=== PATIENT | male | born 1950 | race Caucasian/White ===

== ENCOUNTER 2023-04-25 09:08 | Outpatient (CLI) | payer MEDICARE, BC, SELFPAY ==
--- NOTE | 2023-04-25 10:15 | MR_ITS ---
[address] [address] Phone:?[phone] Fax:?[phone] Referring Physician Information: Dago Zaman M.D. [address] [place] [id number] Phone:?[phone] Fax:?[phone] Patient:?Raymond Carvalho D.O.B:?1950 Sex:?Male Phone:?[phone] [facility] MRN:?[id number] Exam Date:?04/25/2023 EXAM: MRI EXAMINATION OF THE LEFT SHOULDER CLINICAL INFORMATION: Left shoulder pain. No history of surgery to this area. Evaluate possible rotator cuff tear. TECHNICAL INFORMATION: Coronal STIR as well as axial, sagittal and coronal PD and T2-weighted images were acquired. No prior studies for comparison. INTERPRETATION: Bones: There is no Hill-Sachs impaction deformity. Minimal osseous cystic changes alongside the AC joint. No other bone marrow edema pattern. Rotator Cuff: Series 8 images 7 and 8 as well as series 4 images 11 through 13 demonstrate a 1.8 cm AP by 0.8 cm mediolateral segment of undersurface tearing involving the supraspinatus tendon insertion. Towards the far anterior tendon insertion, this includes a 4 mm full-thickness component of tear. There is no evidence for tendon retraction or muscle belly atrophy. Mild infraspinatus tendinopathy. The teres minor tendon is intact. Mild subscapularis tendinopathy. No appreciable rotator cuff muscle belly atrophy. Coracoacromial arch: There is mild undersurface spurring identified involving the acromion. The bony acromiohumeral interval is measuring 7 mm. There is no thickening identified of the coracoacromial ligament. Acromioclavicular joint: There is a moderate to marked appearance of AC joint DJD. No deformity of the underlying supraspinatus tendon. Mild fluid and edema signal within the subacromial/subdeltoid bursa areas. Biceps tendon: The long head biceps tendon is intact and nondisplaced from the bicipital groove. No evidence for a tendon tear or any appreciable changes of tendinopathy. There is a mild to moderate appearance of tenosynovitis. Glenohumeral joint and labrum: No significant glenohumeral joint effusion. No discrete loose body within the joint. Osteochondral surfaces appear relatively preserved. There is a focal and shallow tear identified involving the superior aspect of the labrum. Series 3 image 48 as well as series 4 image 12 demonstrates a 7 mm anterior paralabral cyst as likely represents adjacent occult labral tear. CONCLUSION: 1. There is a moderate-sized segment of undersurface tear involving the supraspinatus tendon insertion. Towards the far anterior tendon insertion, there is a small full-thickness component of tear. No tendon retraction or muscle atrophy. 2. 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 Mild subacromial/subdeltoid bursitis. 3. Unremarkable and intact long head biceps tendon. 4. No appreciable glenohumeral chondromalacia. 5. There is a focal and shallow tear involving the superior aspect of the labrum. There is a 7 mm anterior paralabral cyst as would be in keeping with adjacent occult labral tear. KES Electronically signed on 04/25/2023 3:09:00 PM by Jose Raul Barros M.D.
== END 2023-04-25 09:09 | disposition home or self-care (01) ==
LOC: MRI 09:09
PROVIDERS: PCP Family Medicine; Visit Provider Orthopaedic Surgery
DX: M25.512 Pain in left shoulder (principal); S46.812A Strain of other muscles, fascia and tendons at shoulder and upper arm level, left arm, initial encounter; M19.012 Primary osteoarthritis, left shoulder
CPT/HCPCS: 73221

== ENCOUNTER 2023-06-09 08:54 | Day surgery (SDC) | payer MEDICARE, BC, SELFPAY ==
[2023-06-09] VITALS (17 sets, daily range): BP systolic 108–149; BP diastolic 49–74; PULSE 57–76; RESP 10–18; TEMP 36.1–36.4; O2SAT 92–98; BMI 38.8
[2023-06-09] MEDS: ACETAMINOPHEN 500 MG TABLET 1000 MG PO (09:42)
[2023-06-09] MEDS: CELECOXIB 200 MG CAPSULE PO (09:42)
[2023-06-09] MEDS: OXYCODONE (CR) 10 MG TAB.ER.12H PO (09:42)
[2023-06-09] MEDS: SODIUM CHLORIDE 0.9 % (FLUSH) 10 ML SYRINGE IVF (09:43)
[2023-06-09] MEDS: LACTATED RINGERS 1000 ML 1,000 ML 100 ML IV (09:43)
[2023-06-09] MEDS: MIDAZOLAM HCL 1 MG/ML inj IVP (10:54)
[2023-06-09] MEDS: fentaNYL 100 MCG/2 ML inj IVP (10:54)
--- NOTE | 2023-06-09 10:57 | SUR.PREOP ---
TIME?OUT:?1054 PT/RN/MDA?VERIFICATION?OF?SURGICAL?SITE,?PROCEDURE,?AND?CONSENT OBTAINED?PRIOR?TO?INVASIVE?PROCEDURE.
[2023-06-09] MEDS: CEFAZOLIN 2 GM INJ IVP (11:36)
[2023-06-09] MEDS: EPINEPHrine 1 MG in SODIUM CHLORIDE IRRIG SOLUTION 3,000 ML 9003 MG IRRIGATION ×2 (11:52→12:20)
--- NOTE | 2023-06-09 12:58 | PM.ORPRC ---
Procedure Note Date of procedure: 06/09/23 Procedure: PREOPERATIVE DIAGNOSIS: Left shoulder rotator cuff tear, AC joint arthrosis POSTOPERATIVE DIAGNOSIS: Left shoulder rotator cuff tear, AC joint arthrosis NAME OF OPERATION: Left shoulder arthroscopic subacromial decompression, distal clavicle excision, mini open rotator cuff repair SURGEON: Dago Zaman MD ROVING OR YARN COLOR CHECKER: Zoë Carrizales PA-C ANESTHESIA: Supraclavicular block plus general endotracheal ESTIMATED BLOOD LOSS: 5 mL COMPLICATIONS: None SPECIMENS: None DRAINS: None PREOPERATIVE ANTIBIOTICS: Ancef 3 grams INDICATIONS: The patient is a 72-year-old with a history of left shoulder pain secondary to the above diagnoses. Despite appropriate non operative management, they continue to have symptoms. Operative intervention was recommended. The risks, benefits and expected outcomes were discussed in detail. These included but were not limited to: Infection, bleeding, injury to blood vessel or nerve, venous thromboembolism. All questions were answered to their satisfaction. PROCEDURE: A supraclavicular block was placed by Anesthesia. General anesthesia was administered. The patient was placed in the high beach chair position. The left shoulder was prepped and draped in the usual sterile fashion. The glenohumeral joint was infiltrated with 20 mL of normal saline with epinephrine. The posterior portal was established, the arthroscope was introduced. The anterior portal was established, Diagnostic arthroscopy was performed with findings as follows: The biceps and biceps anchor are intact. The anterior, posterior and superior labrum are normal. Articular surfaces on the humeral head and glenoid are normal. There are no loose bodies. There is undersurface degenerative tearing of the anterior aspect of the supraspinatus, without obvious full-thickness tearing. The arthroscope was placed in the subacromial space, the lateral portal was established. The Arthrex Elton was used to dissect the acromion free. The CA ligament was recessed off the anterior acromion, the AC joint was exposed. The acromioplasty was performed with the bur in the posterior portal. The bur was then placed in the lateral portal and the lateral and anterior aspect of the acromion were resected. The undersurface of the distal clavicle was resected through the lateral portal. Finally, the bur was placed in the anterior portal and the remainder of the distal clavicle was resected for a total of 10 mm. An accessory anterolateral portal was placed. The subacromial/subdeltoid bursa was aggressively debrided. There is a small full-thickness tear of the supraspinatus, with significant tendinopathy into infraspinatus. Arthroscopic instruments were removed. The accessory anterolateral portal was extended proximally and distally, subcutaneous dissection was taken with electrocautery to the deltoid. The deltoid was divided in line with its fibers. The static retractor was placed. The subacromial/subdeltoid bursa was debrided with the Anne scissors. The tear was extended anteriorly to the biceps and posteriorly into the infraspinatus, just past the poor quality tendon. The greater tuberosity was debrided to punctate bleeding bone using the Lempert rongeur. Two Arthrex BioComposite SwiveLock anchors were placed just off the articular surface. Both limbs of the FiberWire and fiber tape were passed using the scorpion. A fiber link was placed in the leading edge of the rotator cuff x2. We tied the 2 central FiberWire sutures over the rotator cuff. We then proceeded with a lateral row of SwiveLock anchors x 2 crossing the FiberTape and incorporating the FiberWire and fiber link into each lateral row anchor. This provides an anatomic, watertight repair of the rotator cuff. There is no tension on the repair with the shoulder at 0? abduction. The wound was irrigated with normal saline off the pump. The deltoid was repaired with an 0 Vicryl in an interrupted [id number] fashion. Subcutaneous tissues were closed with a 3-0 Vicryl. Skin was closed with a 3-0 Monocryl in a subcuticular fashion. A dry dressing, polar care and sling were applied. Sponge and needle counts were correct x2. The patient tolerated the procedure well. There were no apparent complications. They were carefully transferred to the hospital bed and taken to the postanesthesia care unit in satisfactory condition. PLAN: The patient will be discharged to home. No active range of motion of the shoulder will be allowed for 6 weeks postoperatively. They can work on active range of motion of the elbow, wrist and fingers. They will follow up in the office next week for a wound check and an AP and transscapular Y-view of the shoulder prior to being seen.
--- NOTE | 2023-06-09 13:07 | P.NB_ITS ---
Nerve Block Nerve Block Time Seen by Provider: 10:56 Date Seen: 06/09/23 Type of block requested by surgeon for post-operative analgesia: supraclavicular Side: left Time out performed: Yes Verification of patient name: Yes Verification of date of : Yes Site marking: site marked Name of person performing procedure: Atif Continuous monitoring Was continuous monitoring of O2 sat, B/P, media monitor, recorded every 15 minutes?: Yes Procedure Checklist: sterile prep, needles and gloves Ultrasound guided. Images saved: Yes Medications given in 5ml increments after negative aspiration: Ropivicaine %: 0.5 mL: 20 Needle gauge: 22 Decadron (mg): 10 Precedex (mcg): 25 Patient tolerated procedure well: Yes Block Charges Block Charge (with Pro Fee): Brachial Plexus Use of Ultrasound Machine for Block: Yes- US Guidance/pain block
--- NOTE | 2023-06-09 13:07 | W.ANESCHARGE ---
Anesthesia Charges Start Date/Time Anesthesia Start Date: 06/09/23 Anesthesia Start Time: 11:24 Stop Date/Time Anesthesia Stop Date: 06/09/23 Anesthesia Stop Time: 13:29 Summary Extremes of Age - Over 70 or under 1: MDA
--- NOTE | 2023-06-09 13:32 | P.ANES_ITS ---
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
== END 2023-06-09 15:24 | disposition home or self-care (01) ==
PROVIDERS: PCP Family Medicine; Visit Provider Orthopaedic Surgery
PROC: (CPT 23412; principal; 2023-06-09 10:45)
DX: M75.102 Unspecified rotator cuff tear or rupture of left shoulder, not specified as traumatic (principal); M19.012 Primary osteoarthritis, left shoulder; G89.18 Other acute postprocedural pain
CPT/HCPCS: 29826; 29824; 23412; 1630; 64415; 76942; 82962; 99100; A9270; C1713; J0171; J0330; J0690; J1100; J2250; J2405; J2704; J2710; J3010; J7120

== ENCOUNTER 2023-10-05 08:15 | Outpatient (RCR) | payer MEDICARE, BC, SELFPAY ==
--- NOTE | 2023-06-17 10:27 | PT.OPEX ---
PT [place] [facility] Eval PT [facility] Outpatient Eval Start: 06/17/23 07:49 Freq: Status: Active Protocol: Document 06/17/23 07:49 AMS (Rec: 06/17/23 10:21 AMS [id number]) E-signed By Aubrie Pat PT Physical Therapy Outpatient Evaluation Insurance Information Recert Due Date 09/10/23 Insurance Name Medicare B,Other; See Comments Insurance Information/Comments [employer] [place] Medical Diagnosis S/p left shoulder arthroscopic subacromial decompression, distal clavicle excision, and mini open rotator cuff repair on 06/09/23 Treating Diagnosis Left shoulder pain Muscle weakness L shoulder stiffness Referring MD Dago Zaman MD Subjective Subjective Patient, right-hand dominant, reports to physical therapy 1 week s/p left mini open rotator cuff repair, distal clavicle excision, and subacromial decompression with Dr. Zaman. No history of trauma to shoulder; had surgery for degenerative full thickness supraspinatus tear/ mild infraspinatus tendinopathy with pain starting gradually in December. He has been removing his sling for elbow, wrist, and hand ROM/axillary cares, otherwise compliant with wearing it; has been using left arm a little to reach for things close to body, which he knows he isn't supposed to do, then it's a little more sore. Taking pain meds as needed, mostly Tylenol but sometimes Percodan (last one on Tuesday). Pain is generally well controlled. Sleep is going okay, waking up a few times per night and wearing sling to bed. He drove over to physical therapy this morning, as he didn't have anyone to drive him so early; knows he shouldn't be driving. Lives with his kid in split- level house. Localizes pain to lateral left shoulder. Notices intermittent numbness and tingling into fingers, but this has gotten better since surgery. Easing factors include NSAIDs, pain medication, icing, etc. 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 Not currently exercising. Pain Comments 3 or 4/10, 8/10 at worst Date of Last Physician Visit 06/15/23 Current Work Status Retired Preferred Name Paddy Precautions Treatment Precautions/Contraindications Kidney disease stage 3, diabetes, hypertension, COPD The patient will be discharged to home. No active range of motion of the shoulder will be allowed for 6 weeks postoperatively. They can work on active range of motion of the elbow, wrist and fingers. They will follow up in the office next week for a wound check and an AP and transscapular Y-view of the shoulder prior to being seen. -Dago Zaman, 06/17/23, confirmed by patient Therapy Limitations/Systems Review Not Limited Objective Other/Pertinent Objective Observation: Incisions appear clean and well-healing without sign of infection. Moderate bruising along anterior upper arm. Utilizing sling at rest. 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 Patient verbalizes understanding and agrees with POC/goals Education: -Reviewed post-surgical precautions and guidelines: no AROM of shoulder for 6 weeks, wearing sling at all times, including night time, except for axillary cares/PT exercises, icing as needed for pain control -Recommended patient have family member drive him to appointments until AROM is allowed and permanently off higher-level pain meds -Reviewed sling donning and doffing via patient demonstration -Answered patient questions to be best of my ability -Instructed in HEP -Elbow flexion x 10-15 reps 3x /day -Wrist AROM into flexion/ extension x 15 reps 3x/day -Hand squeezes x 10-15 reps 3x /day -Codman's pendulum swings x 10 -15 reps 3x/day, forward/ lateral. Cues for using body weight/LEs as momentum vs shoulder Functional Test Performed & Score SPADI: 75/100 = 75% Assessment Assessment/Impression Pt is a 72 -year-old male who presents 1 week s/p left mini open rotator cuff repair, arthroscopic subacromial decompression, and distal clavicle excision on 06/09/23. Incision appears clean without sign of infection. Per protocol, no AROM for 6 weeks following surgery. On exam, patient also demonstrates notable objective findings including limited PROM due to pain and muscle guarding, decreased strength, and pain, leading to difficulties with ADLs requiring use of left arm , cooking, overhead motions, and gardening. Reviewed post- surgical guidelines and answered patient questions. All findings as expected. Patient is appropriate for skilled physical therapy services to address the above deficits. Pt was agreeable with plan of care and goals established. Primary Functional Limitations reaching, lifting, gardening, cooking, active motion of arm Plan of Care Rehabilitation Potential Good Physical Therapy Goals In 2 sessions: Pt will demonstrate consistent HEP compliance to ensure progress in reaching established goals during course of care. In 16-20 weeks: Pt will demonstrate full AROM of shoulder with <2/10 pain to better perform ADLs. Pt will improve Quick Dash by >20% for meaningful improvement in symptoms. Patient is able to sleep with waking 0-1 times per week due to pain. In 20-24 weeks: Patient will report pain levels < 2/10 with all activity in order to improve functional mobility at home, work, and during functional leisure activities. Coordination/Communication With Referral Source Treatment Plan/Direct Interventions Joint Mobilization,Manual Therapy,Neuromuscular Re-ed, Self-Care/Home Management, Therapeutic Activities, Therapeutic Exercises Frequency/Duration 2/week for several weeks, then 1x/week for 12 sessions Patient Will Be Discharged From Therapy Completion of LTG(s), Independent w/HEP, Independently Progressing Evaluation Billing Untimed Code Treatment Minutes 15 Complexity Moderate Certification Information Initial Certification Date 06/17/23 Ending Certification Date 09/10/23 Provider Signature Shows Agreement With POC & Medical Necessity Physician Signature & Date Requested Please Sign/Date Here Physician Comment/Change : Physician NPI Number #
--- NOTE | 2023-09-09 07:34 | PT.OPDNX ---
PT [facility] Daily Note PT [facility] Daily Note Start: 06/17/23 07:49 Freq: Status: Active Protocol: Document 09/08/23 07:56 AMS (Rec: 09/08/23 12:35 AMS [id number]) E-signed By Aubrie Pat, PT PT OP Daily Progress Note Visit Information Note Type Daily Note,Recert/Progress Note Visit Number [id number] Insurance Information Recert Due Date 12/04/23 Insurance Name Medicare B,Other; See Comments Insurance Information/Comments [employer] [place] [facility] Diagnosis S/p left shoulder arthroscopic subacromial decompression, distal clavicle excision, and mini open rotator cuff repair on 06/09/23 (supraspinatus full -thickness, infraspinatus tendinosis) Treating Diagnosis Left shoulder pain Muscle weakness L shoulder stiffness Referring MD Dago Zaman MD Subjective Subjective Pt states his shoulder is much better in terms of pain/ROM and is 3 months out. He has been doing less outside yardwork and more of his HEP throughout the day; this has improved his pain levels as well. Saw his doctor yesterday , who cleared him to begin final phase of PT ( strengthening) and stated he was doing well/didn't need to return to see him except on as needed basis. His shoulder does not wake him up at night. Pain Comments 0/10 current 4/10 worst this week Preferred Name Paddy Precautions Treatment Precautions/Contraindications Kidney disease stage 3, diabetes, hypertension, COPD The patient may advance their physical therapy to include active ROM. He was given a new prescription. He may discontinue use of the sling as he tolerates. I would like to see the patient back in 6 weeks for clinical reassessment. -Dr. Zaman, Home Exercise Home Exercise Comments Access Code: [email or web address] URL: [email or web address] Date: 09/08/2023 Prepared by: Aubrie Pat Program Notes Pain-free range! Exercises - Supine Shoulder External Rotation AAROM with Dowel - 1 x daily - 7 x weekly - 3 sets - 10-15 reps - Standing Shoulder Flexion Full Range Single Arm - 1 x daily - 5 x weekly - 3 sets - 8-10 reps - 1 lb weight - Standing Shoulder Flexion Wall Walk - 1 x daily - 7 x weekly - 2-3 sets - 10-15 reps - Sidelying Shoulder External Rotation - 1 x daily - 7 x weekly - 2-3 sets - 10-15 reps - Standing Shoulder Internal Rotation Stretch with Towel - 1 x daily - 7 x weekly - 2-3 sets - 10-15 reps - 3-5 sec hold - Shoulder Abduction with Dumbbells - Thumbs Up - 1 x daily - 5 x weekly - 3 sets - 8-10 reps - 1 lb weight - Standing Shoulder Internal Rotation with Anchored Resistance - 1 x daily - 5 x weekly - 3 sets - 10-15 reps - yellow TB - Standing Row with Anchored Resistance - 1 x daily - 5 x weekly - 3 sets - 10-15 reps - red TB Objective Other/Pertinent Objective RIGHT shoulder AROM: Flexion: 130 deg Abduction: 130 deg External rotation at side: 70 deg Internal rotation: T10 LEFT shoulder AROM (supine/ standing) - no pain: FLexion: 140 deg/140 Abd: 150 deg/150 ER: 50 deg IR: L3 PROM: Similar to AROM for all motions, mild pain end ranges NECK/SHOULDER MMT: Not performed due to nature of surgery Roofing Plant Supervisor strength: grossly intact, 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 w/ atrophy noted JOINT MOBILITY/PALPATION Tenderness to palpation over lateral deltoid area, increased tone noted throughout upper trap and surrounding musculature Functional Test Performed & Score SPADI: 75/100 = 75% Patient Instructed in Risks/Benefits Yes Therapeutic Exercise Therapeutic Exercise Minutes (minutes) 55 Therapeutic Exercise: To Restore -Reassessment of objective Functional Status measures Pt educated in the following exercises to improve range of motion with verbal/tactile cues as necessary: -UE bike x 5 min, mod resistance -Shoulder ER in sidelying x 15 reps no weight, w/ 1 lb weight x 10 reps -Standing shoulder flexion AROM x 15 reps, w/ 1 lb weight 2 x 10 reps -Standing abduction AROM x 15 reps, w/ 1 lb weight 2 x 10 reps - Wall push up 2 x 10 reps -Standing isometric ER x 30 seconds -Standing isometric IR x 30 seconds -Standing internal rotation w/ yellow TB x 15 reps -Standing ER w/ yellow TB x 10 reps -Standing row with red TB 2 x 15 reps -Prone bent over T's x 10 reps , no weight -IR stretch with tennis ball passes x 15 reps -Serratus punches w/ 2 lb weight x 12 reps -Reviewed and updated HEP; recommended working on gaining final ER motion this week prior to working on resisted ER at home Treatment Minutes Timed Code Treatment Minutes 55 Total Treatment Time 55 Billing Units Therapeutic Exercise Units 4 Assessment/Impression Assessment/Impression Paddy is 13 weeks s/p left rotator cuff repair. Significantly improved HEP compliance noted this week as well as decreased strain on repair d/t performing less heavy yardwork. He demonstrates normalized flexion and abduction range of motion this visit without pain and does well with intiation of resistance/ strengthening phase with light weights against gravity and in closed chain position at wall. Able to perform all overhead strengthening/ROM without compensatory upper trap motions this visit, although fatigues quickly. Still lacks 20 deg ER compared to other side, so recommended continuing to work on this as well prior to initiating with resistance for HEP. Pt saw doctor, who said pt is doing well and will follow up prn. Overall, pt's pain and ROM are normalized this visit and pt is appropriate to move to Stage IV strengthening phase. Skilled PT services remain necessary to address above deficits. Plan of Care Physical Therapy Goals In 2 sessions: Pt will demonstrate consistent HEP compliance to ensure progress in reaching established goals during course of care. MET In 10 weeks: Pt will sleep with <2/10 pain and wake 0-1 times per night due to pain. MET Pt will demonstrate full and < 3/10 pain PROM for shoulder abduction/flexion. MET In 16-20 weeks: Pt will demonstrate full AROM of shoulder with <2/10 pain to better perform ADLs. PROGRESSING Pt will improve Quick Dash by >20% for meaningful improvement in symptoms. PROGRESSING Patient is able to sleep with waking 0-1 times per week due to pain. MET In 20-24 weeks: Patient will report pain levels < 2/10 with all activity in order to improve functional mobility at home, work, and during functional leisure activities. PROGRESSING All major muscle groups of shoulder will increase to >4+/ 5 in strength for better ability to perform yardwork/ cooking. PROGRESSING Daily Plan of Care Continue per POC Daily Plan of Care Comments Self-supported to unsupported wall slide flexion - Ball roll tabletop and progress to wall - IR stretch with strap Strengthening (supine and sidelying then progress to upright) - Supine/sidelying salutes ER 0? progress standing to sidelying - Upright Row - Standing resisted extension - Empty can Strengthening ( periscapular) - Prone row - Bent over I, A, T - Serratus punches Proprioception - Weight bearing exercises progressing from wall to quadruped to plank position Progress: pain-free, full AROM without compensation, regina ER Recertification Information Initial Certification Date 06/17/23 Recertification Start Date 12/02/23 Recertification Due Date 09/10/24 Reasons to Continue Skilled Therapy Patient is a 73 year old male that underwent left rotator cuff repair with distal clavicle excision and subacromial decompression on and is 13 weeks out.? Patient reports significant improvement in L UE function with skilled physical therapy services.?Patient's range of motion is now full for shoulder flexion and abduction /progressing well with shoulder ER/IR; pt now has more overhead ROM than uninvolved UE.?Patient has shown improvement in physical therapy, demonstrating decreased pain, increased range of motion, increased strength, and increased tolerance to activity and load .?Progress has been slowed d/t fluctuating HEP/precaution compliance. Patient continues to present with pain, decreased ROM, decreased strength, and decreased tolerance to activity.?Patient would benefit from continued skilled PT services to address these issues and to maximize function of L surgical arm. Rehabilitation Potential Good Continued Plan of Care and Interventions Therapeutic exercise Therapeutic activity Neuromuscular re-education Manual therapy Provider Signature Shows Agreement With POC & Medical Necessity
== END 2024-01-10 15:33 | disposition home or self-care (01) ==
PROVIDERS: PCP Family Medicine; Visit Provider Physician Assistant
DX: Z98.890 Other specified postprocedural states (principal); M25.512 Pain in left shoulder; M62.81 Muscle weakness (generalized); M25.612 Stiffness of left shoulder, not elsewhere classified; Z51.89 Encounter for other specified aftercare
CPT/HCPCS: 97110; 97140; 97162

== ENCOUNTER 2024-03-28 14:30 | Outpatient (RCR) | payer MEDICARE, BC, SELFPAY | END 2024-06-14 11:29 | disposition home or self-care (01) | PROVIDERS: PCP Family Medicine; Visit Provider Family Medicine | DX: M54.2 Cervicalgia (principal); G89.29 Other chronic pain; M25.60 Stiffness of unspecified joint, not elsewhere classified; Z51.89 Encounter for other specified aftercare | CPT/HCPCS: 97110; 97140; 97161 ==

== ENCOUNTER 2024-11-09 07:18 | Outpatient (CLI) | payer MEDICARE, SELFPAY ==
--- NOTE | 2024-11-09 09:24 | P.ANES_ITS ---
Anesthesia Charges Start Date/Time Anesthesia Start Date: 11/09/24 Anesthesia Start Time: 09:00 Stop Date/Time Anesthesia Stop Date: 11/09/24 Anesthesia Stop Time: 09:20 Coding CPT Codes CPT Codes: ANES LWR INTST SCR COLSC - 90094 ([id number]) P3 - PATIENT W/SEVERE SYS DISEASE, QK - FAMILY DINNER SERVICE SPECIALIST 2-4 CNCRNT ANES PROC, QX - CHEMICAL ANALYST SVC W/ MD MED DIRECTION
--- NOTE | 2024-11-09 09:24 | W.ANESCHARGE ---
Anesthesia Charges Start Date/Time Anesthesia Start Date: 11/09/24 Anesthesia Start Time: 09:00 Stop Date/Time Anesthesia Stop Date: 11/09/24 Anesthesia Stop Time: 09:20 Coding CPT Codes CPT Codes: ANES LWR INTST SCR COLSC - 17908 ([id number]) P3 - PATIENT W/SEVERE SYS DISEASE, QK - COMMUNITY SERVICE OFFICER COORDINATOR 2-4 CNCRNT ANES PROC, QX - TECHNOLOGY CONSULTANT SVC W/ MD MED DIRECTION
--- NOTE | 2024-11-09 10:47 | W.ANESCHARGE ---
Anesthesia Charges Start Date/Time Anesthesia Start Date: 11/09/24 Anesthesia Start Time: 09:00 Stop Date/Time Anesthesia Stop Date: 11/09/24 Anesthesia Stop Time: 09:20 Summary Extremes of Age - Over 70 or under 1: MDA Coding CPT Codes CPT Codes: ANES LWR INTST SCR COLSC - 16169 ([id number]) QK - IS PROJECT MANAGER 2-4 CNCRNT ANES PROC, QX - CUSTOM LEATHER PRODUCTS MAKER SVC W/ MD MED DIRECTION, P3 - PATIENT W/SEVERE SYS DISEASE Additional Codes: Summary - Extremes of Age - Over 70 or under 1: MDA ([id number])
== END 2024-11-09 07:19 | disposition home or self-care (01) ==
LOC: OP CLINIC 07:20
PROVIDERS: PCP Family Medicine; Visit Provider Internal Medicine Gastroenterology
DX: Z12.11 Encounter for screening for malignant neoplasm of colon (principal); K57.30 Diverticulosis of large intestine without perforation or abscess without bleeding; Z86.0101 Personal history of adenomatous and serrated colon polyps
CPT/HCPCS: 00812; 45378; 99100; J2704

== ENCOUNTER 2024-12-10 15:22 | Emergency (ER) | payer MEDICARE, SELFPAY ==
[2024-12-10 15:25] VITALS: BP 137/54; PULSE 67; RESP 28; TEMP 36.3; O2SAT 95; BMI 37.5
--- OUTSIDE RECORDS SUMMARY | 2024-12-10 15:25 | XMS_ITS | Clinical Summary ---
Author Organization [facility] Address [address] , [address] [place] [address] Phone Care Team Providers Care Knitting Demonstrator Name Role Phone [facility], [facility] Davidzahraa Unavailable Unava ilable Conditions or Problems Problem Name Problem Code Onset Date Status Entry Date Provider Comment Standard Description Annotate Orthostatic dizziness 508328805 (SNOMED CT) Active Nathan Rojas MD Postural dizziness Aphasia 98953307 (SNOMED CT) Active Nathan Rojas MD Aphasia CARPAL TUNNEL SYNDROME 29818716 (SNOMED CT) Active Viktor Blakely MD Carpal tunnel syndrome NUMBNESS/TING LING 782.0 (ICD-9-CM) Active Viktor Blakely MD Disturbance of skin sensation Medications Medication Instructions Start Date Stop Date Generic Name [facility] Provider LEVOCETIRIZINE DIHYDROCHLORIDE 5 MG TABS TAKE ONE TABLET BY MOUTH ONE TIME DAILY in the evening. levocetirizine [id number] Nathan Rojas MD ROSUVASTATIN CALCIUM 40 MG TABS TAKE ONE TABLET BY MOUTH ONE TIME DAILY AT BEDTIME rosuvastatin [id number] Nathan Rojas MD TRAZODONE HCL 100 MG TABS TAKE ONE TABLET BY MOUTH ONE TIME DAILY AT BEDTIME NEEDED FOR SLEEP trazodone [id number] Nathan Rojas MD ISOSORBIDE MONONITRATE ER 30 MG [id number] isosorbide mononitrate [id number] Nathan Rojas MD HYDROCHLOROTHIAZIDE 25 MG TABS hydrochlorothiazide [id number] Bettina Rojas MD TAMSULOSIN HCL 0.4 MG CAPS tamsulosin [id number] Nathan Rojas MD FLUTICASONE PROPIONATE 50 MCG/ACT SUSP INSTILL ONE SPRAY INTO EACH NOSTRIL TWICE DAILY fluticasone propionate [id number] Nathan Rojas MD LOSARTAN POTASSIUM 100 MG TABS TAKE ONE TABLET BY MOUTH ONE TIME DAILY losartan 24047700114 Nathan Rojas MD FAMOTIDINE 20 MG TABS famotidine [id number] Nathan Rojas MD GABAPENTIN 600 MG TABS gabapentin [id number] Nathan Rojas MD Medications Administered No information available. Allergies, Adverse Reactions, Alerts Observed no known allergies at Results Date Name Value Unit Range Flag Description Internal Other: Authorizatio n PTSTAUTHDT DONE PT Adam g Authorization Date Internal Other: Observation data from Authorization.pdf HIECONSENT Y Consent To Release information to the [employer]) Lab Report: 02/25/21 - 2 ABSOLUTE MON 0.5 10*3/uL Monocyte s [#/volume] in Blood GLOBULIN SER 3.1 Globulin , Serum PH, URINE 6.5 PH, URINE EGFR NOT AFA >60 mL/min/1. 73m2 Glomerular filtration rate/1.73 sq M.predicted among non-blacks [Volume Rate/Area] in Serum, Plasma or Blood by Creatinine-based formula (MDRD) LEUES Negative Leukocyte es terase [Presence] in Urine by Test strip ABS EOS 0.2 {Cells}/u L Eosinophils [#/volume] in Blood CA 9.0 mg/dL Calcium [Mass/volume] in Serum or Plasma KETONES UA Negative mg/dL Ketones [Mass/volume] in Urine by Test strip ABSOLUTE BAS completed 10*3/uL Basoph ils [#/volume] in Blood ABS LYMPHOCY 1.4 10*3/uL Absolute Lymphocytes ABS NEUTROPH 3.3 10*3/uL Neutroph ils [#/volume] in Blood GFR >60 mL/min Glomerular filtration rate/1.73 sq M.predicted among non-blacks [Volume Rate/Area] in Serum, Plasma or Blood by Creatinine-based formula (MDRD) BLD STL Negative Hemoglobin.g astroint estinal [Presence] in Stool NON-HDL CHOL 113 mg/dL choleste rol, non-HDL, total % BASO AUTO 0.2 % basophils as percent of blood leukocytes, automated count % EOS AUTO 3.7 % Eosinophil s/100 leukocytes in Blood by Automated count CHOL/HDL 3.76 cholesterol/ HDL ratio, serum CO2 TOTAL 27 mmol/L carbon diox akbar, serum, total GLUCOSE SER 109 mg/dL Glucose [Mass/volume] in Serum or Plasma TRIGLYC TOT 204 mg/dL Triglycer akbar [Mass/volume] in Serum or Plasma - mg/dL MPV 9.6 fL Platelet mean volume [Entitic volume] in Blood by Joseph UA COLOR Yellow Color of Uri ne BUN/CREAT 14 Urea nitrogen/Creatinine [Mass Ratio] in Serum or Plasma MONOCYTE % 9.2 % Monocytes/ 100 leukocytes in Blood by Automated count MCH 31.5 pg MCH [Entitic mass] by Automated count RDW 14.3 % Erythrocyte distribution width [Ratio] by Automated count MCHC 33.9 % MCHC [Mass/vo lume] by Automated count NITRITE URN Negative Nitrite [Presence] in Urine by Test strip PMN % 60.5 % Neutrophils/1 00 leukocytes in Blood by Automated count MCV 93 fL MCV [Entitic volume] by Automated count ANION GAP 9 Anion gap 4 in Serum or Plasma SODIUM 139 mmol/L Sodium [Moles/volume] in Serum or Plasma A/G RATIO 1.4 Albumin/Dejah bulin [Mass Ratio] in Serum or Plasma WBC 5.4 10*3/mm3 Leukocytes [#/volume] in Blood by Automated count RBC 4.76 10*6/mm3 Erythrocytes [#/volume] in Blood by Automated count PLATELETS 154 10*3/mm3 Platelets [#/volume] in Blood by Automated count HGB 15.0 g/dL Hemoglobin [Mass/volume] in Blood HCT 44.3 % Hematocrit [V olume Fraction] of Blood by Automated count BILI TOTAL 1.2 mg/dL Bilirubin. total [Mass/volume] in Serum or Plasma SGPT (ALT) 14 U/L Alanine aminotransferase [Enzymatic activity/volume] in Serum or Plasma SGOT (AST) 22 U/L Aspartate aminotransferase [Enzymatic activity/volume] in Serum or Plasma PROTEIN, TOT 7.3 g/dL Protein [Mass/volume] in Serum or Plasma POTASSIUM 4.5 mmol/L Potassium [Moles/volume] in Serum or Plasma LDL 72 mg/dL Cholesterol i n LDL [Mass/volume] in Serum or Plasma - mg/dL TSH 3.93 u[iU]/mL Thyrotropin [Units/volume] in Serum or Plasma HGBA1C 6.3 % Hemoglobin A1c/Hemoglobin, total in Blood - % HDL 41 mg/dL Cholesterol i n HDL [Mass/volume] in Serum or Plasma - mg/dL CREATININE 1.13 mg/dL Creatinine [Mass/volume] in Serum or Plasma CHOLESTEROL 154 mg/dL Cholester ol [Mass/volume] in Serum or Plasma - mg/dL CHLORIDE 103 mmol/L Chloride [Moles/volume] in Serum or Plasma BUN 16 mg/dL Urea nitrogen [Mass/volume] in Serum or Plasma B-12 282 pg/mL Cobalamin (Vi tamin B12) [Mass/volume] in Serum or Plasma ALK PHOS 60 U/L Alkaline moiz sphatase [Enzymatic activity/volume] in Blood ALBUMIN 4.2 g/dL Albumin [Mass/volume] in Serum or Plasma Office Visit: Office Visit MEDS REVIEW Done Documenta tion of current medications (procedure) SMOK STATUS former smoker Tob acco smoking status Plan of Care Type Date Detail Pending order EEG Ambulatory ( 48hr) Pending order EEG Ambulatory ( 48hr) Pending Order exclud ed from report: Pending order EEG 3hr Pending order We will contact you with test results Procedures Code Procedure Name Date Entry Date ORDERS EEG Ambulatory (48hr) 01/29 ORDERS EEG 3hr CPT-47581 EEG Setup CPT-12453 Video EEG 2-12hrs () 01/29 CPT-03822 Video EEG 2-12hrs (Yanna) 202 12/04/00 ORDERS We will contact you with test results 202 12/03/24 [facility]-[id number] Documentation of current medicatio ns CPT-66155 Motor NCS x 2 CPT-93842 Sensory NCS x 2 CPT-65547 Motor NCS x 2 CPT-10896 Sensory NCS x 3 CPT-56452 EMG with NCS (5+ muscles) - 1 limb 03/15 Vital Signs Date Name Value Unit Description BMI (Body Mass Index) 39.68 kg/m2 Bod y Mass Index (Ratio) Height 69.29 [in_us] height E&M Weight Measured 122.73 kg weight in kilograms E&M Weight Measured 270 [lb_av] weight E& M Body Temperature 36.67 [degF] temperat ure E&M BP Diastolic 80 mm[Hg] blood pressu re, diastolic BP Systolic 132 mm[Hg] blood pressur e, systolic Heart Rate 62 /min pulse rate Respiratory Rate 16 /min respirat ory rate E&M Immunizations No information available. Advance Directives No information available.
--- OUTSIDE RECORDS SUMMARY | 2024-12-10 15:25 | XMS_ITS | Clinical Summary ---
Author Organization [facility] [facility] Address [place], [place] [address] Care Team Providers Care Laboratory Tester Name Role Phone Segun Vazquez MD Unavailable [phone] Oneil Marcos MD Unavailable [phone] Riley Guthrie DO Unavailable [phone] Christine Booker MD Primary Care Provider [phone] Allergies No known active allergies Medications multivitamin (CHEWABLE MULTI VITAMIN) Chew Take 1 tablet by mouth once daily. 0 08/10/20 10 Active cholecalciferol (VITAMIN D) 1,000 unit capsule Take 1 capsule by mouth once daily. 0 08/29/20 13 Active acetaminophen (TYLENOL EXTRA STRGTH) 500 mg tabletIndications :Chronic back pain, unspecified back location, unspecified back pain laterality Take 2 tablets by mouth 2 times daily if needed. Max acetaminophen dose: 4000mg in 24 hrs. 120 tablet 3 02/07/20 18 Active potassium gluconate 550 mg (90 mg) tab Take by mouth. 0 11/15/19 20 Active aspirin chewable 81 mg chewable tablet Take 1 tablet by mouth once daily with a meal. 0 09/10/20 20 Active polyethylene glycol 400 (BLINK TEARS) 0.25 % drop Place into the eye(s). 0 09/10/20 20 Active medication order composer CBD oil-1 drop by mouth daily 0 09/10/20 20 Active echinacea 400 mg capsule Take 2 Capsules (800 mg) by mouth once daily. 0 05/06/20 22 Active meclizine (ANTIVERT) 25 mg tabletIndications :BPPV (benign paroxysmal positional vertigo), right TAKE ONE TABLET BY MOUTH THREE TIMES DAILY NEEDED FOR vertigo. 30 Tablet 06/17/20 22 Active blood-glucose meterIndications: Type 2 diabetes mellitus without complication, with long-term current use of insulin (HC) Dispense meter, test strips, lancets covered by pt ins. E11.65 NIDDM type II, uncontrolled - Test 1 time/day 1 Each 04/06/20 23 Active hydrocortisone (CORTIZONE) 2.5 % lotionIndications :Pruritus Apply topically to affected area(s) two times daily. 118 mL 04/06/20 23 Active blood sugar diagnostic (Blood Glucose Test) stripIndications: Type 2 diabetes mellitus without complication, with long-term current use of insulin (HC) E11.65 NIDDM type II, uncontrolled - Test 1 time/day 100 Each 04/08/20 23 Active lancetsIndication s:Type 2 diabetes mellitus without complication, with long-term current use of insulin (HC) E11.65 NIDDM type II, uncontrolled - Test 1 time/day 100 Each 04/08/20 23 Active albuterol HFA (PRO-AIR; VENTOLIN; PROVENTIL) 90 mcg/actuation inhalerIndication s:REYNOLDS (dyspnea on exertion) Inhale 1-2 Puffs by mouth every 4 hours if needed (for shortness of breath or 15 min before exercise). 1 Each 05/24/20 23 Active levocetirizine (XYZAL) 5 mg tab tabletIndications :Seasonal allergies Take 1 Tablet (5 mg) by mouth once daily in the evening. 90 Tablet 3 11/24/19 24 Active famotidine (PEPCID) 20 mg tabletIndications :Gastric reflux Take 1 Tablet (20 mg) by mouth two times daily. 180 Tablet 2 11/24/19 24 Active losartan (COZAAR) 100 mg tabletIndications :HTN (hypertension) Take 1 Tablet (100 mg) by mouth once daily. 90 Tablet 3 07/12/20 24 Active tamsulosin (FLOMAX) 0.4 mg capsuleIndication s:Urinary frequency Take 1 Capsule (0.4 mg) by mouth once daily after a meal. 90 Capsule 3 07/12/20 24 Active hydroCHLOROthiazi de 12.5 mg tabletIndications :HTN (hypertension) Take 1 Tablet (12.5 mg) by mouth once daily. 90 Tablet 1 08/15/20 24 Active polyethylene glycol-electrolyt e (GOLYTELY) 236-22.74-6.74 -5.86 gram suspensionIndicat ions:Encounter for screening colonoscopy Drink 2 liters the day before the procedure and day of the procedure. 4000 mL 10/19/20 24 Active CPAPIndications:O SA (obstructive sleep apnea) RESMED CPAP (E0601) machine for home use at pressure: 9 cmw, Choice of mask (A7030 or A7034) w/full face cushion (A7031) x1/mo, nasal cushion (A7032) x2/mo, or nasal pillows (A7033) x 2/mo; Length of Need: 99 months; Frequency of use: Daily 1 Each 10/16/20 24 Active fluticasone (50 mcg per actuation) nasal solution (FLONASE)Indicati ons:Environmental allergies Inhale 1 Paxinos in both nostrils once daily. 48 g 2 11/21/19 25 Active traZODone (DESYREL) 100 mg tabletIndications :Insomnia, idiopathic Take 1 Tablet (100 mg) by mouth at bedtime if needed for Sleep. 90 Tablet 1 11/21/19 25 Active gabapentin (NEURONTIN) 600 mg tabletIndications :Post herpetic neuralgia Take 1 Tablet (600 mg) by mouth once daily. 90 Tablet 1 11/21/19 25 Active empagliflozin (Jardiance) 25 mg tabletIndications :Type 2 diabetes mellitus without complication, with long-term current use of insulin (HC),Stage 3 chronic kidney disease, unspecified whether stage 3a or 3b CKD (HC) Take 1 Tablet (25 mg) by mouth once daily. 90 Tablet 11/22/19 25 Active rosuvastatin (CRESTOR) 40 mg tabletIndications :Hyperlipidemia, unspecified hyperlipidemia type Take 1 Tablet (40 mg) by mouth at bedtime. 90 Tablet 2 11/23/19 25 Active metFORMIN (GLUCOPHAGE XR) 500 mg Extended-Release tabletIndications :Type 2 diabetes mellitus without complication, with long-term current use of insulin (HC) Take 1 Tablet (500 mg) by mouth two times daily with meals. 180 Tablet 11/23/19 25 Active isosorbide mononitrate (IMDUR) 30 mg extended release tablet 24 HourIndications:C AD in [place] artery Take 1 Tablet (30 mg) by mouth once daily. 90 Tablet 11/23/19 25 Active isosorbide mononitrate (IMDUR) 30 mg extended release tablet 24 HourIndications:C AD in [place] artery Take 1 Tablet (30 mg) by mouth once daily. 90 Tablet 1 07/12/20 24 025 Discontin ued(*Avai lability/ Formulary change/Co st of medicatio n) metFORMIN (GLUCOPHAGE XR) 500 mg Extended-Release tabletIndications :Type 2 diabetes mellitus without complication, with long-term current use of insulin (HC) Take 1 Tablet (500 mg) by mouth two times daily with meals. 180 Tablet 1 07/12/20 24 025 Discontin ued(*Avai lability/ Formulary change/Co st of medicatio n) rosuvastatin (CRESTOR) 40 mg tabletIndications :Hyperlipidemia, unspecified hyperlipidemia type Take 1 Tablet (40 mg) by mouth at bedtime. 90 Tablet 3 07/12/20 24 025 Discontin ued(*Avai lability/ Formulary change/Co st of medicatio n) traZODone (DESYREL) 100 mg tabletIndications :Insomnia, idiopathic Take 1 Tablet (100 mg) by mouth at bedtime if needed for Sleep. 90 Tablet 3 07/12/20 24 025 Discontin ued(*Avai lability/ Formulary change/Co st of medicatio n) gabapentin (NEURONTIN) 600 mg tabletIndications :Post herpetic neuralgia Take 1 Tablet (600 mg) by mouth once daily. 90 Tablet 3 07/12/20 24 025 Discontin ued(*Avai lability/ Formulary change/Co st of medicatio n) empagliflozin (Jardiance) 25 mg tabletIndications :Type 2 diabetes mellitus without complication, with long-term current use of insulin (HC),Stage 3 chronic kidney disease, unspecified whether stage 3a or 3b CKD (HC) Take 1 Tablet (25 mg) by mouth once daily. 90 Tablet 10/11/20 24 025 Discontin ued(*Avai lability/ Formulary change/Co st of medicatio n) fluticasone (50 mcg per actuation) nasal solution (FLONASE)Indicati ons:Environmental allergies Inhale 1 Paxinos to both nostrils once daily. 48 g 2 11/02/19 25 025 Discontin ued(*Avai lability/ Formulary change/Co st of medicatio n) metFORMIN (GLUCOPHAGE XR) 500 mg Extended-Release tabletIndications :Type 2 diabetes mellitus without complication, with long-term current use of insulin (HC) Take 1 Tablet (500 mg) by mouth two times daily with meals. 180 Tablet 11/22/19 25 025 Discontin ued(*Avai lability/ Formulary change/Co st of medicatio n) isosorbide mononitrate (IMDUR) 30 mg extended release tablet 24 HourIndications:C AD in [place] artery Take 1 Tablet (30 mg) by mouth once daily. 90 Tablet 11/22/19 25 025 Discontin ued(*Avai lability/ Formulary change/Co st of medicatio n) rosuvastatin (CRESTOR) 40 mg tabletIndications :Hyperlipidemia, unspecified hyperlipidemia type Take 1 Tablet (40 mg) by mouth at bedtime. 90 Tablet 2 11/22/19 25 025 Discontin ued(*Avai lability/ Formulary change/Co st of medicatio n) Active Problems Problem Noted Date Diagnosed Date CASIMIRO 05/25/2013 AHI- 99 10/16/2024 Moderate aortic stenosis 09/04/2024 CHF (congestive heart failur e), NYHA class II, chronic, combined 09/04/2024 Morbid obesity due to excess calories 09/04/2024 CAD in [place] artery 11/24/2023 Coronary atherosclerosis due to lipid rich plaqu e 11/24/2023 Insomnia, idiopathic 11/24/2023 COPD exacerbation 04/06/2023 Pruritus 04/06/2023 Urinary frequency 10/19/2022 Type 2 diabetes mellitus wit hout complication, with long-term current use of insulin 10/19/2022 Status post left knee replacement 02/11/2022 Acute diverticulitis of intestine 02/11/2022 Stage 3 chronic kidney disease 12/09/2021 New onset type 2 diabetes mellitus 07/29/2021 S/P left middle finger proxi mal interphalangeal joint arthrodesis; DOS: 10/14/[address] Oneil Kingsley 10/27/2020 Post herpetic neuralgia 10/21/2016 Osteoarthritis of spine with radiculopathy, lumb ar region 01/14/2016 Hx of fracture of wrist 08/27/2014 Periodic limb movement disorder 10/11/2013 Central sleep apnea due to medical condition 09/2013 Seborrheic keratosis 07/25/2013 Lumbar facet arthropathy 06/20/2013 HTN (hypertension) 03/19/2013 Cardiomegaly 01/16/2013 Overview (01/31/2013): On chest xray 01/10. ECHO just with Slight mitral, aortic, and tricuspid insufficiencies for age. No LVH. Adenomatous colon polyp 08/21/2012 Overview (11/09/2024): Colonoscopy 07/2012 polyp repeat in 5 years Colonoscopy 10/2017 polyp, repeat in 5 years Colonoscopy 09/2021 8-TA, diverticuli, repeat in 3 years Colonoscopy 10/2024 tics, repeat in 5 years Hyperlipemia 07/08/2012 Vitamin D deficiency 07/08/2012 Trigger finger (acquired) 01/17/2006 Impotence of organic origin 12/29/2005 DJD (degenerative joint disease), lumbar Resolved Problems Problem Noted Date Diagnosed Date Resolved Date Pre-diabetes 12/25/2013 10/19/2022 Right sacral radiculopathy 02/12/2013 0 06/20/2013 Right sacral radiculopathy 01/10/2013 0 03/15/2013 Lumbar strain 01/10/2013 06/20/2013 Varicose veins of legs 01/11/201106/20 Elevated blood pressure read ing without diagnosis of hypertension 08/10/2010 03/07/2013 Fracture of distal end of radius 01/11/2010 05/11/2013 Regular astigmatism 12/11/2008 06/20/20 13 Presbyopia 12/11/2008 06/20/2013 Hyperopia 12/11/2008 06/20/2013 Impotence of organic origin 01/17/2006 01/17/2006 Specific bursitides often of occupational origin 01/17/2006 06/20/2013 Lumbago 07/25/2001 05/11/2013 Chronic low back pain 2012 Encounters Date Type Department Care Team Description 12/10/2024 Nurse Triage [facility] [address] [place] [address] Christine Booker MD Dizziness (Since last Tuesday) 12/06/2024 1:00 PM WET PRIMER POWDER BLENDER Office Visit [facility] [address] [facility] [address] [place] [phone] Antionette Cespedes PA CV Valve Est (EVOLUT EXPAND II REDO BASELINE VST/MHIF RESEARCH/SEAFOOD FARMER-KIM [id number]/ECHO @ 9:30AM/RA TO DO 6MW / APPT CONFIRMED BY EDDIE 12/05//PCP: Christine Booker MD/) 12/06/2024 9:29 AM WET PRIMER POWDER BLENDER - 12/06/2024 11:59 PM WET PRIMER POWDER BLENDER Hospital Encounter [facility] [address] [place] [address] Roland Torres MD Lee, Hannah, R.T. (ARRT) Moderate aortic stenosis 12/06/2024 Lab Requisition [facility] [phone] Unknown, Doctor 12/06/2024 Travel 12/05/2024 Telephone [facility] [address] [facility] [address] [place] [phone] Kim Osorio RN Research 12/01/2024 Travel 11/30/2024 Orders Only [facility] Scanner 1 scan: (1-Ord) [facility] and [facility], 11/30/2024 11/27/2024 Telephone [facility] [address] [place] [address] Christine Booker MD Follow Up 11/23/2024 Telephone [facility] [address] [place] [address] Christine Booker MD Refill Request (Imdur, metformin, rosuvastatin, Jardiance (alternative requested)) 11/23/2024 Refill [facility] [address] [place] [address] Christine Booker MD Refill Request (Metformin, Rosuvastatin, Isosorbide Mononitrate. Jardiance - requests alternative) 11/22/2024 Telephone [facility] [address] [place] [address] Christine Booker MD Refill Request (4 meds Metformin, Imdur, Jardiance and Crestor ) 11/19/2024 Refill [facility] [address] [place] [address] Christine Booker MD Refill Request (gabapentin (NEURONTIN) 600 mg tablet /traZODone (DESYREL) 100 mg tablet /fluticasone (50 mcg per actuation) nasal solution (FLONASE) /) 11/09/2024 7:45 AM WET PRIMER POWDER BLENDER Office Visit [facility] at [facility] [address] [place] [phone] Roberto Carter MD 11/09/2024 Orders Only [facility] Scanner 1 scan: (1-Ord) [facility] 11/09/2024 Orders Only [facility] Scanner 1 scan: (1-Ord) [facility] 11/05/2024 Telephone [facility] [address] [facility] [address] [place] [phone] Kim Osorio, CHRISTIANO CV Research RN 11/05/2024 Orders Only [facility] [address] [place] [address] [place] [phone] Roland Torres MD CV Research 10/29/2024 Refill [facility] [address] [place] [address] Christine Booker MD Refill Request (Fluticasone (50 Mcg Per Actuation) Nasal) 10/18/2024 12:00 PM WET PRIMER POWDER BLENDER Office Visit [facility] [address] [facility] [address] [place] [phone] Candelario Gordon MD 10/18/2024 11:30 AM WET PRIMER POWDER BLENDER Office Visit [facility] [address] [facility] [address] [place] [phone] Florin Adams NP CV Valve Est (EVOLUT EXPAND II BASELINE/[facility] RESEARCH/SEAFOOD FARMER KIM [id number]/ECHO@ 9:30AM/(6MW)//PCP: Christine Booker MD/) 10/18/2024 9:28 AM WET PRIMER POWDER BLENDER - 10/18/2024 11:59 PM WET PRIMER POWDER BLENDER Hospital Encounter [facility] [address] [place] [address] Roland Torres MD Juras, Rachel E Moderate aortic stenosis 10/18/2024 Lab Requisition [facility] [phone] Unknown, Doctor 10/18/2024 Telephone [facility] [address] [facility] [address] [place] [phone] Kim Osorio, CHRISTIANO Research 10/17/2024 Travel 10/17/2024 Telephone [facility] [address] [facility] [address] [place] [phone] Cardiology, Anw Late Cancel Appointment 10/16/2024 2:30 PM WET PRIMER POWDER BLENDER Office Visit [facility] [address] [place] [address] Anderson Mckeon MD Sleep Consult 10/16/2024 Travel 10/16/2024 Telephone [facility] [address] [place] [address] Christine Booker MD Follow Up 10/12/2024 Telephone [facility] [address] [place] [address] Christine Booker MD Results 10/11/2024 9:10 AM WET PRIMER POWDER BLENDER Office Visit [facility] [address] [place] [address] Christine Booker MD Pre-Op Exam (Colonoscopy, [place], 11/09/2024, [facility]); Diabetes 10/11/2024 Travel 10/10/2024 Travel 10/03/2024 Telephone [facility] [address] [place] [address] Christine Booker MD 10/01/2024 Telephone [facility] [address] [place] [address] [place] [phone] Kim Osorio, RN 09/25/2024 Telephone [facility] [address] [place] [address] Christine Booker MD Questions (Return Call) 09/18/2024 Telephone [facility] [address] [place] [address] [place] [phone] Kim Osorio, RN Research 09/17/2024 Orders Only [facility] [address] [place] [address] [place] [phone] Roland Torres MD <No scans attached> 09/13/2024 Telephone [facility] [address] [place] [address] Roberto Carter MD [facility]ACY [facility] 09/12/2024 Orders Only [facility] [address] [place] [address] Roberto Carter MD <No scans attached> 09/10/2024 Telephone [facility] [address] [place] [address] [place] [phone] Kim Osorio, RN Research 09/10/2024 Telephone [facility] [address] [place] [address] [place] [phone] Ruben Gambino MD Research Study Information from Last 3 Months Immunizations Name Administration Dates Next Due COVID-19 vaccine (Swag Of The Month-Bio NTech 30mcg/0.3mL) 12YO+ BIVALENT PF, MDV 08/19/2022 COVID-19 vaccine (Swag Of The Month-Bio NTech 30mcg/0.3mL) PF, MDV 03/23/2022,07/29/2021,01/03/2021,11/27 Influenza RIV4 (Age 18+ Year s) PRESERV FREE 08/06/2020 Influenza, High-dose Inactivated 12/07/2016 Influenza, High-dose Quadriv alent Inactivated 08/08/2023,07/26/2022 Influenza, IIV3 (Age >=3 years) 11/19/2013,07/04 Influenza, IIV4 07/29/2014 Influenza, Inactivated AIIV4 (Age 65+ Years) Preserv Free 07/29/2021 Influenza, Inactivated IIV3 (Age 65+ Years) Preserv Free 07/12/2024,10/02/2019,11/14/2018 Pneumococcal Poly,23-Valent (Pneumovax) 02/06/2018 Pneumococcal conj 13-Valent (Prevnar 13) 02/11/2016 RSV, Recombinant ADJ Reconst ituted (Arexvy 120MCG/0.5mL) 07/25/2024 Tdap 08/27/2022,07/04/2012 Zoster (Shingrix-RZV, recombinant) 07/26/2022, Zoster (Zostavax-ZVL, live) 12/25/2012 Family History Medical History Relation Name Comments Alzheimer's disease Mother Arthritis Mother Genetic Other Mother - Diabet ic Anesthesia Problem No Family History Relation Name Status Comments Father Mother Other Social History Tobacco Use Types Packs/Day Years Used Date Smoking Tobacco: Former Cigarettes 0.5 40 0 10/31/1961 - 10/31/2001 Smokeless Tobacco: Never Tobacco Cessation:Counseling Given: Yes Alcohol Use Standard Drinks/Week Comments Yes 5 (1 standard drink = 0.6 oz pur e alcohol) Alcoholic Drinks/day: 1 PHQ-2 Answer Date Recorded PHQ-2 TOTAL SCORE 0 08/15/2024 Social Connections Answer Date Recorded Do you often feel lonely or isolated from those around you? 0 02/23/2024 Financial Resource Strain Answer Date R ecorded Difficulty of Paying Living Expenses 3 02/23/2024 Difficulty of Paying Living Expenses Not on file 02/23/2024 Food Insecurity Answer Date Recorded Do you worry your food will run out before you are able to buy more? 1 02/23/2024 Transportation Needs Answer Date Record ed Does lack of transportation keep you from medica l appointments? 1 02/23/2024 Does lack of transportation keep you from work, meetings or getting things that you need? 1 02/23/2024 Housing Stability Answer Date Recorded What is your housing situation today? 1 02/23/2024 Utilities Answer Date Recorded Do you have trouble paying f or utilities (for example, heat, electricity, water, phone)? 1 02/23/2024 Sex and Gender Information Value Date Recorded Sex Assigned at Male 12/05/2021 12:59 PM WET PRIMER POWDER BLENDER Legal Sex Male 6:20 AM WET PRIMER POWDER BLENDER Gender Identity Male 12/05/2021 12:59 PM WET PRIMER POWDER BLENDER Sexual Orientation Straight 07/07/2020 10 :25 AM CDT Obstetrics History Last Filed Vital Signs Vital Sign Reading Time Taken Comments Blood Pressure 137/65 12/06/2024 12:55 PM WET PRIMER POWDER BLENDER Pulse 68 12/06/2024 12:55 PM WET PRIMER POWDER BLENDER Temperature 36.4 C (97.6 F) 10/11/2024 9:24 AM WET PRIMER POWDER BLENDER Respiratory Rate 12 05/24/2023 10:28 AM CDT Oxygen Saturation 92% 12/06/2024 12:55 PM WET PRIMER POWDER BLENDER Inhaled Oxygen Concentration - - Weight 115.7 kg (255 lb) 12/06/2024 12:55 PM WET PRIMER POWDER BLENDER Height 177.8 cm (5' 10) 12/06/2024 12:55 PM WET PRIMER POWDER BLENDER Body Mass Index 36.59 12/06/2024 12:55 PM WET PRIMER POWDER BLENDER Plan of Treatment Upcoming Encounters Date Type Department Care Team (Late st Contact Info) Description 01/10/2025 9:10 AM CDT Office Visit [facility] [address] [place] [address] Christine Booker MD [address] [place] [address] Health Maintenance Due Date Last Done Comments Depression screening for age 12+ 08/15/2025 08/15/2024, 11/24/2023, 10/19/2022, Additional history exists Medicare Wellness for age 65+ 08/16/2025, 10/19/2022, 07/29/2021, Additional history exists BMI (ht and wt on same day) for age 18+ 12/06/2025 12/06/2024, 10/18/2024, 10/16/2024, Additional history exists Lipids for age 45-75 10/11/2029 10/11/2024, 11/24/2023, 10/19/2022, Additional history exists Colonoscopy through age 75 11/09/202911/09, 11/09/2024, 11/09/2024, Additional history exists Tetanus booster 08/27/2032 08/27/2022, 07/04/2012 Hepatitis C screening for ag e 18-79 Completed 07/29/2014 Pneumococcal series for age 50+ Completed 8, 02/11/2016 AAA screening age 65-74 Completed 04/21/2021, 06/06 Zoster (shingles) series for age 50+ Completed 07/26/2022, 05/06/2022, 12/25/2012 Tdap Completed 08/27/2022, 07/04/2012 Influenza for age 65+ Completed 07/12/2024 , 08/08/2023, 07/26/2022, Additional history exists COVID-19 vaccine series Completed 07/25/20, 08/08/2023, 08/19/2022, Additional history exists RSV vaccine for adults or Completed 07/25/2024 Procedures Procedure Name Priority Date/Time Associated Diagnosis Comments CBC WITH AUTO DIFFERENTIAL Routine 12/06/2024 11:20 AM WET PRIMER POWDER BLENDER CREATININE Routine 12/06/2024 11:20 AM WET PRIMER POWDER BLENDER PRO-BNP Routine 12/06/2024 11:20 AM WET PRIMER POWDER BLENDER CBC WITH AUTO DIFFERENTIAL Routine 12/06/2024 11:20 AM WET PRIMER POWDER BLENDER ECHO TTE COMPLETE WO CONTRAST Routine 12/06/2024 10:28 AM WET PRIMER POWDER BLENDER Moderate aortic stenosis SCAN-EYE EXAM 11/30/2024 12:00 AM WET PRIMER POWDER BLENDER COLONOSCOPY SCREENING Routine 11/09/2024 8:04 AM WET PRIMER POWDER BLENDER Diverticulosis of large intestine without hemorrhage SCAN-COLONOSCOPY 11/09/2024 12:0 0 AM WET PRIMER POWDER BLENDER SCAN-COLONOSCOPY 11/09/2024 12:0 0 AM WET PRIMER POWDER BLENDER ECHO TTE COMPLETE WO CONTRAST Routine 10/18/2024 11:13 AM WET PRIMER POWDER BLENDER Moderate aortic stenosis CBC WITH AUTO DIFFERENTIAL Routine 10/18/2024 8:56 AM WET PRIMER POWDER BLENDER CREATININE Routine 10/18/2024 8:56 AM WET PRIMER POWDER BLENDER PRO-BNP Routine 10/18/2024 8:56 AM WET PRIMER POWDER BLENDER CBC WITH AUTO DIFFERENTIAL Routine 10/18/2024 8:56 AM WET PRIMER POWDER BLENDER HEMOGLOBIN Routine 10/11/2024 9:07 AM WET PRIMER POWDER BLENDER Preoperative cardiovascular examination BASIC METABOLIC PANEL Routine 10/11/2024 9:07 AM WET PRIMER POWDER BLENDER Stage 3 chronic kidney disease, unspecified whether stage 3a or 3b CKD (HC) LIPID PANEL W REFLEX MEASURED LDL Routine 10/11/2024 9:07 AM WET PRIMER POWDER BLENDER Hyperlipidemia, unspecified hyperlipidemia type HEMOGLOBIN A1C MONITORING (POCT) Routine 10/11/2024 9:06 AM WET PRIMER POWDER BLENDER Type 2 diabetes mellitus without complication, with long-term current use of insulin (HC) CT ABDOMEN PELVIS W STAT 04/21/2021 1 1:35 AM CDT Abdominal pain, LLQ (left lower quadrant) ANTI HCV Routine 07/29/2014 3:15 PM CDT Need for hepatitis C screening test from Last 3 Months or Most Recently Relevant to Health Maintenance Results * CBC WITH AUTO DIFFERENTIAL (12/06/2024 11:20 AM [facility]) Only the most recent of2 resultswithin the time period is included. WHITE BLOOD COUNT 5.8 4.5 - 11.0 thou/cu mm 12/06/2024 12:13 PM [facility] RED BLOOD COUNT 5.00 4.30 - 5.90 mil/cu mm 12/06/2024 12:13 PM [facility] HEMOGLOBIN 15.3 13.5 - 17.5 g/dL 12/06/2024 12:13 PM [facility] HEMATOCRIT 45.3 37.0 - 53.0 % 12/06/2024 12:13 PM [facility] MCV 91 80 - 100 fL 12/06/2024 12:13 PM [facility] MCH 30.6 26.0 - 34.0 pg 12/06/2024 12:13 PM [facility] MCHC 33.8 32.0 - 36.0 g/dL 12/06/2024 12:13 PM [facility] RDW 13.9 11.5 - 15.5 % 12/06/2024 12:13 PM [facility] PLATELET COUNT 158 140 - 440 thou/cu mm 12/06/2024 12:13 PM [facility] MPV 10.2 6.5 - 11.0 fL 12/06/2024 12:13 PM [facility] NRBC 0.0 % 12/06/2024 12:13 PM [facility] ABS NRBC 0.0 thou /cu mm 12/06/2024 12:13 PM [facility] % NEUT 67.5 % 12/06/2024 12:13 PM [facility] % LYMPH 19.4 % 12/06/2024 12:13 PM [facility] % MONO 7.7 % 12/06/2024 12:13 PM [facility] % EOS 4.6 % 12/06/2024 12:13 PM [facility] % BASO 0.5 % 12/06/2024 12:13 PM [facility] % IMMATURE GRAN (METAS,MYELOS,NV OS) 0.3 % 12/06/2024 12:13 PM WET PRIMER POWDER BLENDER [facility] ABSOLUTE NEUTROPHILS 3.9 1.7 - 7.0 thou/cu mm 12/06/2024 12:13 PM WET PRIMER POWDER BLENDER [facility] ABSOLUTE LYMPHOCYTES 1.1 0.9 - 2.9 thou/cu mm 12/06/2024 12:13 PM [facility] ABSOLUTE MONOCYTES 0.5 <0.9 thou/cu mm 12/06/2024 12:13 PM [facility] ABSOLUTE EOSINOPHILS 0.3 <0.5 thou/cu mm 12/06/2024 12:13 PM [facility] ABSOLUTE BASOPHILS 0.0 <0.3 thou/cu mm 12/06/2024 12:13 PM [facility] ABSOLUTE IMMATURE GRANULOCYTES(MET ,MYELOS,PROS) 0.0 <0.3 thou/cu mm 12/06/2024 12:13 PM [facility] Blood BLOOD SPECIMEN / Unknown Client Collect / Unknown 12/06/2024 11:20 AM WET PRIM[employer] POWDER BLENDER 12/06/2024 12:07 PM [facility] us Doctor Unknown HEMATOLOGY Final Result [facility] [address] [place] [address], * (ABNORMAL) CREATININE (12/06/2024 11:20 AM [facility]) Only the most recent of2 resultswithin the time period is included. eGFR 59(L) >90 mL/min/1.7 3m2 12/06/2024 12:40 PM [facility] Comment:As of 2022, eG FR is calculated by the CKD-EPI creatinine equation without race adjustment. eGFR can be influenced by muscle mass, exercise, and diet. The reported eGFR is an estimation only and is only applicable if the renal function is stable. CREATININE 1.27(H) 0.70 - 1.20 mg/dL 12/06/2024 12:40 PM [facility] Blood BLOOD SPECIMEN / Unknown Client Collect / Unknown 12/06/2024 11:20 AM W[employer] BL[employer]ER 12/06/2024 12:07 PM [employer] us Doctor Unknown CHEMISTRY Final Result [facility] [address] [place] [address], * PRO-BNP (12/06/2024 11:20 AM [employer]) Only the most recent of2 resultswithin the time period is included. PRO-BNP <=36 <125 pg/mL 12/06/2024 12:40 PM [facility] POWDER BLEND[facility] Blood BLOOD SPECIMEN / Unknown Client Collect / Unknown 12/06/2024 11:20 AM WET PRIMER POWDER BLENDER 12/06/2024 12:07 PM WET PRIMER POWDER BLENDER Narrative [facility] - 12/06/2024 12:40 PM WET [employer] POWDER BLENDER The following cut-points have been suggested for the use of proBNP for the diagnostic evaluation of heart failure (HF) in patient with acute dyspnea. Patients with eGFR >= 60 Diagnosis (rule in CHF) <50 Years Old 450 pg/mL 50 - 75 Years Old 900 pg/mL >75 Years Old 1800 pg/mL Exclusion (rule out CHF) Age Independent 300 pg/mL A cutoff of 1200 pg/mL for patients with an eGFR <60 yields a diagnostic sensitivity of 89% and specificity of 72% for acute congestive heart failure. us Doctor Unknown SEND OUTS Final Result [facility] [address] [place] [address], [place] * ECHO TTE COMPLETE WO CONTRAST (12/06/2024 10:28 AM WET [employer] POWDER BLEND[employer]) Only the most recent of2 resultswithin the time period is included. AORTIC VALVE MEAN PG 22 mmHg EJECTION FRACTION 60 % LVEDD 4.4 cm EJECTION FRACTION 55 - 60% Anatomical Region Laterality Modality Ultrasound 12/06/2024 9:31 AM WET [employer] POWDER BLENDER Narrative 12/06/2024 4:34 PM WET [employer]IM[employer] POWDER BLENDER ECHOCARDIOGRAM ARIANNE CELIS : 1950 74 years Study Date: 12/06/2024 9:31:41 AM Gender: M BP: 137/63 mmHg Height: 178.00 cm BSA: 2.30 m Weight: 114.00 kg Tech: HRL Referring MD: ROLAND TORRES Site: [facility] Reading Location: [facility] OP Patient Location: Outpatient. Procedure: 2D, Color Doppler and Spectral Doppler. Indication for study: EXPAND II Protocol, Moderate Aortic Stenosis Cardiac Rhythm: Normal sinus.Study quality: Good. Final Impressions: 1. Moderate [V-max 3.0 m/s, MG 22 mmHg, valve area 1.12 cm2]. 2. LVEF estimate 55-60%. Normal LV size and wall thickness. 3. Normal RV size and global function. 4. Normal RAP estimate. Chamber Sizes and Function No resting regional wall motion abnormality visualized. Left atrial size is normal. Left atrial pressure is normal. Right ventricular cavity size is normal, global systolic RV function is normal. RV wall thickness is normal. The right atrium is normal. The pulmonary artery is not well visualized. The sinus of Valsalva is normal for age/sex/bsa. The ascending aorta is normal for age/sex/bsa. Valves, RV Pressures and Diastolic Function The aortic valve is calcified, trileaflet and sclerotic, mild to moderate stenosis and trivial regurgitation. The mitral valve is normal in structure, no mitral regurgitation. Mitral annular calcification is present. Indeterminate pattern of LV diastolic filling. The tricuspid valve is normal in structure. Tricuspid regurgitation is regurgitation is not evident. Unable to assess right ventricular systolic pressure. The pulmonic valve is not well visualized. Trace pulmonary regurgitation. Masses, Effusion, Shunts There is no pericardial effusion. The inferior vena cava is normal sized, respiratory size variation greater than 50%. No left to right shunting was detected by limited color flow Doppler interrogation of the interatrial septum. MEASUREMENTS AND CALCULATIONS 2-D Measurements and LV Function: LVID (d) 4.4 cm LV FS% (2D) 32 % LVID (s) 3.0 cm LVOT diameter 2.3 cm IVS (d) 1.1 cm HR 68 bpm LVPW (d) 1.1 cm LA Vol index 31 ml/m2 Ao Sinus 4.2 cm Asc Ao 3.9 cm Diastology: Mitral Tissue Doppler E Peak 0.7 m/s e', Septum 0.07 m/s A Peak 0.9 m/s e', Lateral 0.08 m/s E/A 0.8 E/e' Average 10.16 DT 274 msec Aortic Valve: Vmax 3.0 m/s CALISTA (V) 1.12 cm VTI 0.65 m CALISTA (I) 1.12 cm LVOT V max 0.8 m/s Max PG 36 mmHg LVOT VTI 0.18 m Mean PG 22 mmHg SV 73 ml Dim Index 0.27 SV index 32 ml/m CO 5.0 l/min CI 2.2 l/min/m Mitral Valve: MVA 2.8 cm MV P 1/2 79 msec Tricuspid Valve and estimated PA pressures: TAPSE 2.4 cm . This study was interpreted by an [facility] accredited facility. Final Procedure Note Jose Rowland MD - 12/06/2024 ECHOCARDIOGRAM ARIANNE CELIS : 1950 74 years Study Date: 12/06/2024 9:31:41 AM Gender: M BP: 137/63 mmHg Height: 178.00 cm BSA: 2.30 m Weight: 114.00 kg Tech: HRL Referring MD: ROLAND TORRES Site: [facility] Reading Location: [facility] OP Patient Location: Outpatient. Procedure: 2D, Color Doppler and Spectral Doppler. Indication for study: EXPAND II Protocol, Moderate Aortic Stenosis Cardiac Rhythm: Normal sinus.Study quality: Good. Final Impressions: 1. Moderate [V-max 3.0 m/s, MG 22 mmHg, valve area 1.12 cm2]. 2. LVEF estimate 55-60%. Normal LV size and wall thickness. 3. Normal RV size and global function. 4. Normal RAP estimate. Chamber Sizes and Function No resting regional wall motion abnormality visualized. Left atrial sizeis normal. Left atrial pressure is normal. Right ventricular cavity sizeis normal, global systolic RV function is normal. RV wall thickness isnormal. The right atrium is normal. The pulmonary artery is not wellvisualized. The sinus of Valsalva is normal for age/sex/bsa. The ascendingaorta is normal for age/sex/bsa. Valves, RV Pressures and Diastolic Function The aortic valve is calcified, trileaflet and sclerotic, mild to moderatestenosis and trivial regurgitation. The mitral valve is normal instructure, no mitral regurgitation. Mitral annular calcification ispresent. Indeterminate pattern of LV diastolic filling. The tricuspidvalve is normal in structure. Tricuspid regurgitation is regurgitation isnot evident. Unable to assess right ventricular systolic pressure. Thepulmonic valve is not well visualized. Trace pulmonary regurgitation. Masses, Effusion, Shunts There is no pericardial effusion. The inferior vena cava is normal sized,respiratory size variation greater than 50%. No left to right shunting wasdetected by limited color flow Doppler interrogation of the interatrialseptum. MEASUREMENTS AND CALCULATIONS 2-D Measurements and LV Function: LVID (d) 4.4 cm LV FS% (2D) 32 % LVID (s) 3.0 cm LVOT diameter 2.3 cm IVS (d) 1.1 cm HR 68 bpm LVPW (d) 1.1 cm LA Vol index 31 ml/m2 Ao Sinus 4.2 cm Asc Ao 3.9 cm Diastology: Mitral Tissue Doppler E Peak 0.7 m/s e', Septum 0.07 m/s A Peak 0.9 m/s e', Lateral 0.08 m/s E/A 0.8 E/e' Average 10.16 DT 274 msec Aortic Valve: Vmax 3.0 m/s CALISTA (V) 1.12 cm VTI 0.65 m CALISTA (I) 1.12 cm LVOT V max 0.8 m/s Max PG 36 mmHg LVOT VTI 0.18 m Mean PG 22 mmHg SV 73 ml Dim Index 0.27 SV index 32 ml/m CO 5.0 l/min CI 2.2 l/min/m Mitral Valve: MVA 2.8 cm MV P 1/2 79 msec Tricuspid Valve and estimated PA pressures: TAPSE 2.4 cm . This study was interpreted by an [facility] accredited facility. Final us Roland Torres MD ECHO ORD Final Result * SCAN-EYE EXAM (11/30/2024 12:00 AM WET PRIMER POWDER BLENDER) us Scanner OTHER Final Result * SCAN-COLONOSCOPY (11/09/2024 12:00 AM WET PR[employer] POWDER BLENDER) us Scanner OTHER Final Result * SCAN-COLONOSCOPY (11/09/2024 12:00 AM WET PRIMER POWDER BLENDER) us Scanner OTHER Final Result * (ABNORMAL) LIPID PANEL W REFLEX MEASURED LDL (10/11/2024 9:07 AM WET PRIMER POWDER BLENDER) CHOLESTEROL, TOTAL 143 <200 mg/dL [facility] HDL CHOLESTEROL 44 > OR = 40 mg/dL [facility] TRIGLYCERIDES 254(H) <150 mg/dL [facility] Comment: If a non-fasting specimen was collected, consider repeat triglyceride testing on a fasting specimen if clinically indicated. Lizzette et al. J. of Clin. Lipidol. 2015;9:129-169. LDL-CHOLESTEROL 69 mg/dL (calc) [facility] Comment: Reference range: <100 Desirable range <100 mg/dL for primary prevention; <70 mg/dL for patients with CHD or diabetic patients with > or = 2 CHD risk factors. LDL-C is now calculated using the Thierry calculation, which is a validated novel method providing better accuracy than the Friedewald equation in the estimation of LDL-C. Roberto COLE et al. MORENITA. 2013;310(19): 0290-7538 (http://education.ScalingData/faq/JOS981) CHOL/HDLC RATIO 3.3 <5.0 (calc) [facility] NON HDL CHOLESTEROL 99 <130 mg/dL (calc) [facility] Comment: For patients with diabetes plus 1 major ASCVD risk factor, treating to a non-HDL-C goal of <100 mg/dL (LDL-C of <70 mg/dL) is considered a therapeutic option. Blood BLOOD SPECIMEN / Unknown 10/11/2024 9:07 AM WET PRIM[employer] POWDER BLENDER 10/11/2024 9:07 AM WET PRIM[employer] POWDER BLENDER Christine Booker MD CHEMISTRY Final Resul t Performing Organization Address City/[facility]/ZIP Co de Phone Number [facility] [address] [place] [address], [place] [phone] [facility] [address] [place] [address] * HEMOGLOBIN (10/11/2024 9:07 AM WET PRIMER POWDER BLENDER) [facility] Signature HEMOGLOBIN 15.6 13.2 - 17.1 g/dL [email or web address] Blood BLOOD SPECIMEN / Unknown 10/11/2024 9:07 AM WET PRIMER POWDER BLENDER 10/11/2024 9:07 AM WET PRIMER POWDER BLENDER Christine Booker MD HEMATOLOGY Final Resul t [facility] [address] [place] [address], [place] [phone] [facility] [address] [place] [address] * (ABNORMAL) BASIC METABOLIC PANEL (10/11/2024 9:07 AM WET PRIMER POWDER BLENDER) GLUCOSE 156(H) 65 - 99 mg/dL [email or web address] Comment: Fasting reference interval For someone without known diabetes, a glucose value >125 mg/dL indicates that they may have diabetes and this should be confirmed with a follow-up test. UREA NITROGEN (BUN) 23 7 - 25 mg/dL [facility] CREATININE 1.26 0.70 - 1.28 mg/dL [facility] EGFR 60 > OR = 60 mL/min/1. 73m2 [facility] BUN/CREATININE RATIO SEE NOTE: 6 - 22 (calc) [facility] Comment: Not Reported: BUN and Creatinine are within reference range. SODIUM 137 135 - 146 mmol/L [facility] POTASSIUM 4.2 3.5 - 5.3 mmol/L [facility] CHLORIDE 101 98 - 110 mmol/L [facility] CARBON DIOXIDE 24 20 - 32 mmol/L [facility] ELECTROLYTE BALANCE 12 7 - 17 mmol/L (calc) [facility] CALCIUM 9.2 8.6 - 10.3 mg/dL [email or web address] Blood BLOOD SPECIMEN / Unknown 10/11/2024 9:07 AM WET PRIMER POWDER BLENDER 10/11/2024 9:07 AM WET PRIMER POWDER BLENDER us Christine Booker MD CHEMISTRY Final Resul t [facility] [address] [place] [address], [email or web address] [address] [place] [address] * (ABNORMAL) POCT Hemoglobin A1C Monitoring (10/11/2024 9:06 AM WET PRIMER POWDER BLENDER) Pathologist [facility] POC HEMOGLOBIN A1C 7.1(H) <6.0 % OF TOTAL HGB [facility] Comment: Any point of care results exhibiting inconsistency with the patient's clinical status should be repeated using a different testing method. Blood BLOOD SPECIMEN / Unknown 10/11/2024 9:06 AM WET PRIMER POWDER BLENDER 10/11/2024 9:06 AM WET PRIMER POWDER BLENDER us Christine Booker MD CHEMISTRY Final Resul t [facility] [address] [place] [address], [facility] [address] [place] [address] * CT ABDOMEN PELVIS W (04/21/2021 11:35 AM CDT) Anatomical Region Laterality Modality Abdomen, Pelvis, AORTA, LIVER, SPLEEN Computed Tomography 04/21/2021 12:3 1 PM CDT Narrative 04/21/2021 12:31 PM CDT For Patients: As a result of the Cures Act, medical imaging exams and procedure reports are released immediately into your electronic medical record. You may view this report before your referring provider. If you have questions, please contact your health care provider. Indication: Abdominal pain, LLQ (left lower quadrant) Technique: Postcontrast CT abdomen and pelvis. Oral water. 100 cc Omnipaque 350 intravenous contrast. Please note that all CT scans at this facility use dose modulation, iterative reconstruction, and/or weight-based dosing when appropriate to reduce radiation dose to as low as reasonably achievable. Comparison: None Findings: Focal inflammatory changes involving the sigmoid colon. No disseminated free air or abscess. No bowel obstruction. No hydronephrosis. No significant adenopathy. Prostate upper limits normal. Bladder normal. Normal ureters. No solid renal mass. No renal stone. Adrenal glands normal. Spleen unremarkable. Incidental splenule. Normal pancreas. Fatty infiltration liver. Normal gallbladder. Vascular calcifications. Lung bases clear. No fracture. Impression: Acute uncomplicated sigmoid diverticulitis. Please note that all CT scans at this facility use dose modulation, iterative reconstruction, and/or weight-based dosing when appropriate to reduce radiation dose to as low as reasonably achievable. Dictated by Asim Dugan MD @ Apr 21 2021 12:31PM (Electronically Signed) Procedure Note Asim Dugan MD - 04/21/2021 For Patients: As a result of the 21st Century Cures Act, medical imagingexams and procedure reports are released immediately into your electronicmedical record. You may view this report before your referring provider.If you have questions, please contact your health care provider. Indication: Abdominal pain, LLQ (left lower quadrant) Technique: Postcontrast CT abdomen and pelvis. Oral water. 100 cc Omnipaque 350intravenous contrast. Please note that all CT scans at this facility use dose modulation,iterative reconstruction, and/or weight-based dosing when appropriate toreduce radiation dose to as low as reasonably achievable. Comparison: None Findings: Focal inflammatory changes involving the sigmoid colon. No disseminatedfree air or abscess. No bowel obstruction. No hydronephrosis. Nosignificant adenopathy. Prostate upper limits normal. Bladder normal.Normal ureters. No solid renal mass. No renal stone. Adrenal glandsnormal. Spleen unremarkable. Incidental splenule. Normal pancreas. Fattyinfiltration liver. Normal gallbladder. Vascular calcifications. Lungbases clear. No fracture. Impression: Acute uncomplicated sigmoid diverticulitis. Please note that all CT scans at this facility use dose modulation,iterative reconstruction, and/or weight-based dosing when appropriate toreduce radiation dose to as low as reasonably achievable. Dictated by Asim Dugan MD @ Apr 21 2021 12:31PM (Electronically Signed) Rashmi MARES CT Final Result * ANTI HCV [[id number]] (07/29/2014 3:15 PM CDT) HEPATITIS C ANTIBODY Non-Reacti ve Non-Reacti ve 07/30/2014 5:25 PM CDT [facility] Blood specimen (specimen) BLOOD SPECIMEN / Unknown Venipuncture / Unknown 07/29/2014 3:15 PM CDT 07/29/2014 3:15 PM CDT Narrative [facility] - 07/30/2014 5:25 PM CDT Antibodies to HCV not detected; does not exclude the possibility of exposure to HCV. Josi Kaplan MD SEND OUTS Final Result [facility] 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 Healthcare Directive 11/16/2022 023 Healthcare Directive 06/06/2019 10:45 AM * Full Code (Latest Code Status on File) Date Activated Date Inactivated Comments 08/09/2012 12:06 PM 08/09/2012 3:15 PM * Full Code Date Activated Date Inactivated Comments 08/09/2012 10:41 AM 08/09/2012 12:06 PM * Full Code Date Activated Date Inactivated Comments 06/21/2012 8:30 AM 06/21/2012 6:05 PM Care Teams Laboratory Tester Relationship Specialty Start Date End Date Christine Booker MD [address] [place] [address] PCP - General Family Practice 10/19/17 Segun Vazquez MD [address] [place] [address] Pain Management Sports Medicine 07/12/13 Oneil Macros MD [address] [address] Ophthalmology Ophthalmology Surgery 02/09/15 Riley Guthrie DO [address] [place] [address] General Surgery Surgery of the Hand 02/09/13
[2024-12-10 15:48] LABS: Glucose, Point-of-Care* 132 mg/dl (60-115)
--- NOTE | 2024-12-10 16:18 | ED_ITS ---
HPI - General Adult General Time Seen by Provider: 16:18 Date Seen: 12/10/24 Chief complaint: Dizziness/Vertigo Stated complaint: Short of breath, dizzy Time Seen by Provider: 12/10/24 16:15 Source: patient, RN notes reviewed and old records reviewed Mode of arrival: ambulatory Limitations: no limitations History of Present Illness HPI narrative: 74-year-old male with COPD, chronic kidney disease, aortic stenosis who presents today with dizziness. Patient notes for the last couple of days he has had increased lightheadedness and dizziness when he stands up, sits up, or turns quickly. He describes this as feeling off balance that lasts about 5 seconds. Does not describe room spinning dizziness. No accompanying nausea, vomiting. No chest pain, no increased shortness of breath from usual, no leg swelling, no nausea, vomiting, diarrhea. Patient was at [facility] just prior to this and had cardiac evaluation for his aortic stenosis. No new medications or recent medication changes reported. Related Data Home Medications ?Medication ?Instructions ?Recorded ?Confirmed albuterol sulfate 90 mcg/actuation 1 - 2 puff inhalation Q4H PRN 08/06/22 09/07/23 aerosol inhaler famotidine 20 mg tablet 20 mg PO Q8H 08/06/22 09/07/23 fluticasone propionate 50 1 spray intranasal Q12H 08/06/22 09/07/23 mcg/actuation nasal spray,suspension gabapentin 600 mg tablet 600 mg PO Q12H 08/06/22 09/07/23 hydrochlorothiazide 25 mg tablet 25 mg PO DAILY 08/06/22 09/07/23 isosorbide mononitrate 30 mg 30 mg PO DAILY 08/06/22 09/07/23 tablet,extended release 24 hr levocetirizine 5 mg tablet 5 mg PO DAILY 08/06/22 09/07/23 losartan 100 mg tablet 100 mg PO DAILY 08/06/22 09/07/23 meclizine 25 mg tablet 25 mg PO TID PRN 08/06/22 09/07/23 rosuvastatin 40 mg tablet 40 mg PO HS 08/06/22 09/07/23 tamsulosin 0.4 mg capsule 0.4 mg PO DAILY 08/06/22 09/07/23 trazodone 100 mg tablet 100 mg PO HS PRN 08/06/22 09/07/23 acetaminophen 500 mg capsule 500 mg PO Q6H PRN 04/18/23 09/07/23 aspirin 81 mg tablet,delayed 81 mg PO QDAY 04/18/23 09/07/23 release cholecalciferol (vitamin D3) 25 25 mcg PO QDAY 04/18/23 09/07/23 mcg (1,000 unit) capsule echinacea 400 mg capsule 800 mg PO QDAY 04/18/23 09/07/23 metformin 500 mg tablet 500 mg PO BIDWMEAL 04/18/23 09/07/23 multivitamin 1 tab PO QAM 04/18/23 09/07/23 polyethylene glycol 400 0.25 % eye 1 drp ophthalmic (eye) 04/18/23 09/07/23 gel drops potassium gluconate 550 mg (90 mg) 550 mg PO QDAY 04/18/23 09/07/23 tablet Allergies Allergy/AdvReac Type Severity Reaction Status Date / Time No Known Drug Allergies Allergy Verified 09/07/23 10:06 [facility] Medical History (Updated 12/10/24 @ 19:40 by Apollo Greenberg MD) COPD exacerbation ?J44.1 - Chronic obstructive pulmonary disease with (acute) exacerbation (ICD-10) Acute diverticulitis of intestine ?K57.92 - Diverticulitis of intestine, part unspecified, without perforation or abscess without bleeding (ICD-10) Stage 3 chronic kidney disease ?N18.30 - Chronic kidney disease, stage 3 unspecified (ICD-10) Type 2 diabetes mellitus ?E11.9 - Type 2 diabetes mellitus without complications (ICD-10) CASIMIRO (obstructive sleep apnea) ?G47.33 - Obstructive sleep apnea (adult) (pediatric) (ICD-10) Surgery, elective ?Z41.9 - Encounter for procedure for purposes other than remedying health state, unspecified (ICD-10) Hypertension ?I10 - Essential (primary) hypertension (ICD-10) High cholesterol ?E78.00 - Pure hypercholesterolemia, unspecified (ICD-10) Diabetes ?E11.9 - Type 2 diabetes mellitus without complications (ICD-10) Arthritis of right acromioclavicular joint ?M19.011 - Primary osteoarthritis, right shoulder (ICD-10) Rotator cuff tear, right ?M75.101 - Unspecified rotator cuff tear or rupture of right shoulder, not specified as traumatic (ICD-10) Surgical History (Updated 07/21/23 @ 15:24 by Karina Walker) Status post left rotator cuff repair (06/09/23) ?Z98.890 - Other specified postprocedural states (ICD-10) Hx of cataract surgery ?Z98.49 - Cataract extraction status, unspecified eye (ICD-10) History of carpal tunnel release ?Z98.890 - Other specified postprocedural states (ICD-10) Status post left knee replacement (11/20/19) ?Z96.652 - Presence of left artificial knee joint (ICD-10) Social History (Updated 09/07/23 @ 10:07 by Rosaline Cuba ~ [facility]) Smoking Status: Former smoker What tobacco products do you use: cigarettes Smoking quit date/years: >15 years ago Do you use any of these nicotine containing products: None Second hand tobacco smoke exposure: Yes ( and son smoke in garage) How often do you have a drink containing alcohol: 4 or more times a week How many standard drinks containing alcohol do you have on a typical day: 1 or 2 How often do you have six or more drinks on one occasion: Never AUDIT-C Alcohol total score: 4 Non-prescribed substance use: denies use Caffeine: Yes (2-3 c/day) Exam Narrative: Exam Narrative: General: Well-developed and well-nourished, no acute distress Head: Atraumatic and normocephalic Eyes: Pupils are equal reactive, extraocular motions intact, conjunctiva clear ENT: External nose and ears are normal, posterior pharynx without erythema or exudate Neck: No midline cervical tenderness, full spontaneous range of motion the neck, trachea midline, no adenopathy Heart: Regular rate and rhythm with 4/6 systolic murmur Lungs: Trace crackles bilaterally Abdomen: Soft, nontender, nondistended with active bowel sounds Musculoskeletal: No tenderness, deformity, or edema Neurologic: Awake, alert, and oriented x3, no gross focal neurologic deficits, cranial nerves intact as tested Psych: Mood and affect are appropriate Skin: No rashes Const: Vital Signs, click to edit/add: Vital Signs - 24 hr 12/10/24 15:25 12/10/24 17:22 12/10/24 19:18 Temperature 97.4 F L 97.3 F L 96.5 F L Pulse Rate [Pulse Oximeter] 67 63 59 L Respiratory Rate 28 H 18 18 [facility] 137/54 L 139/79 145/71 H Pulse Oximetry 95 94 96 Oxygen Delivery Me thod Room Air Room Air Room Air Course Course ED Course: Reviewed most recent cardiology note from December 06 when patient was seen in structural disease clinic, most recent echocardiogram from December 06 with moderate aortic stenosis with normal ejection fraction and normal right ventricular function. No chest pain, shortness of breath, no cough, no leg swelling. On exam here, patient is finally stable other than the mild tachypnea although he takes short shallow breaths, when he takes deeper breaths good breath sounds throughout other than some trace crackles in the bases. No focal neurologic deficits. Given the patient describes more lightheadedness that seems to be positional was standing up or return to the head, this does not seem to be a central process such as acute CVA or intracranial hemorrhage, sounds more like a cardiogenic near syncope. Patient recently had extensive evaluation at [facility] for aortic stenosis. Labs ordered today along with chest x-ray, consider CT PE study, D-dimer is ordered. EKG independently the interpreted by me performed at 3:58 p.m. demonstrates sinus rhythm with first-degree AV block rate 62, no acute ST elevations or depressions, normal intervals, normal axis, QTC 395, CA 228, QTC 395. No prior for comparison. Reevaluation(s) Time of Reevaluation #1: 18:14 Reevaluation #1: Labs independently interpreted by me with negative troponin, normal CBC, negative D-dimer, normal basic panel, normal magnesium, negative BNP, negative respiratory panel. Given symptoms have been going on for the last 4 days, no indication for repeat troponin at this time. Time of Reevaluation #2: 18:30 Reevaluation #2: Chest x-ray ordered and independently interpreted by me negative for acute findings. Urinalysis pending and anticipate discharge with outpatient follow- up. Time of Reevaluation #3: 19:37 Reevaluation #3: Called lab due to delay in urinalysis result, microscopic exam shows few bacteria, few yeast, few squamous cells, dipstick not yet done. No definite etiology for patient's symptoms found today. No new aortic stenosis and symptoms seem consistent with positional orthostasis. No room spinning dizziness or vertigo to suggest labyrinthitis, BPPV, and no focal neurologic deficits to suggest intracranial pathology. Symptom management, maintain hydration, and follow up with primary care for further testing is if symptoms not improved. Vital Signs Vital signs: Initial Vital Signs Temperature 97.4 F L 12/10/24 15:25 Temperature Source Temporal Artery Scan 12/10/24 15:25 Pulse Rate 67 12/10/24 15:25 Respiratory Rate 28 H 12/10/24 15:25 Blood Pressure 137/54 L 12/10/24 15:25 Blood Pressure Mean 81 12/10/24 15:25 Blood Pressure Position Sitting 12/10/24 15:25 Pulse Oximetry 95 12/10/24 15:25 Oxygen Delivery Method Room Air 12/10/24 15:25 Vital Signs Temperature 97.4 F L 12/10/24 15:25 Pulse Rate 67 12/10/24 15:25 Respiratory Rate 28 H 12/10/24 15:25 Blood Pressure 137/54 L 12/10/24 15:25 Pulse Oximetry 95 12/10/24 15:25 Oxygen Delivery Method Room Air 12/10/24 15:25 Temperature 96.5 F L 12/10/24 19:18 Pulse Rate 59 L 12/10/24 19:18 Respiratory Rate 18 12/10/24 19:18 Blood Pressure 145/71 H 12/10/24 19:18 Pulse Oximetry 96 12/10/24 19:18 Oxygen Delivery Method Room Air 12/10/24 19:18 Medical Decision Making Lab Data Labs: Lab Results 12/10/24 12/10/24 12/10/24 Range/Units 15:47 17:00 17:05 WBC 5.29 (4.50-11.00) K/uL RBC 4.96 (4.30-5.90) m/uL Hgb 15.1 (13.5-17.5) gm/dL Hct 45.6 (37.0-53.0) % MCV 92 (80-100) fL MCH 30 (26-34) pg MCHC 33 (32-36) gm/dL RDW Coeff of Eric 13.7 (11.5-15.5) % Plt Count 149 (140-440) K/uL Neut % (Auto) 62.8 (42.0-72.0) % Lymph % (Auto) 21.9 (20-44) % [place] % (Auto) 8.1 (0.0-11.0) % Eos % (Auto) 6.8 (0.0-7.0) % Baso % (Auto) 0.2 (0.0-3.0) % Neut # (Auto) 3.32 (1.7-7.0) K/uL Lymph # (Auto) 1.16 (0.90-2.90) K/uL [place] # (Auto) 0.40 (0.00-0.90) K/UL Eos # (Auto) 0.36 (0.00-0.50) K/uL Baso # (Auto) 0.01 (0.00-0.30) K/uL Abs Immat Gran (auto) 0.01 (0.00-0.30) K/uL Imm/Tot Granulo (auto) 0.2 % D-Dimer Quant (PE/DVT) 0.43 (0.00-0.50) ug/ml Sodium 138 (135-149) mmol/L Potassium 4.0 (3.6-5.1) mmol/L Chloride 102 (96-114) mmol/L Carbon Dioxide 27 (20-32) mmol/L Anion Gap 9 (7-15) mEq/L BUN 29 (7-30) mg/dL Creatinine 1.3 (0.5-1.5) mg/dL Estimated Creat Clear 49.85 Estimated GFR 58 ml/min Glucose 117 H (60-115) mg/dL Calcium 8.7 (8.4-10.6) mg/dL Magnesium 2.4 (1.5-2.6) mg/dL NT-Pro-B Natriuret Pep < 20 pg/mL Urine RBC 0-2 (0-2) Urine WBC 0-2 (0-5) Ur Squamous Epith Cells Few (None-Few) Urine Bacteria Few A (None) Urine Yeast Few A (None) SARS-CoV-2 (PCR) Negative SARS-CoV-2 (Negative) Influenza Type A (PCR) Negative PCR FLU A (Negative) Influenza Type B (PCR) Negative PCR FLU B (Negative) RSV (PCR) Negative PCR RSV (Negative) POC Glucose 132 H (60-115) mg/dl POC Troponin I 0.00 L (0.01-0.04) ng/ml Discharge Plan Discharge Clinical Impression: Orthostatic hypotension, Positional lightheadedness, Aortic stenosis Patient Disposition: Home, Self-Care Condition: Stable Instructions: Lightheadedness (ED) Additional Instructions: Continue your current medications. Make sure you stay well hydrated and get plenty of rest. If symptoms do not improve in 5-7 days, follow-up with your primary care doctor for further evaluation. Activity Level: Activity as Tolerated Discharge Diet: Regular Prescriptions: No Action acetaminophen 500 mg capsule 500 mg PO Q6H PRN aspirin 81 mg tablet,delayed release (DR/EC) 81 mg PO QDAY polyethylene glycol 400 0.25 % drops,gel 1 drp ophthalmic (eye) multivitamin Tablet 1 tab PO QAM echinacea 400 mg capsule 800 mg PO QDAY Rx Instructions: administer with meals metformin 500 mg tablet 500 mg PO BIDWMEAL potassium gluconate 550 mg (90 mg) tablet 550 mg PO QDAY cholecalciferol (vitamin D3) 25 mcg (1,000 unit) capsule 25 mcg PO QDAY losartan 100 mg tablet 100 mg PO DAILY levocetirizine 5 mg tablet 5 mg PO DAILY Patient Comments: TAKE ONE TABLET BY MOUTH ONE TIME DAILY in the evening. hydrochlorothiazide 25 mg tablet 25 mg PO DAILY Patient Comments: TAKE ONE TABLET BY MOUTH ONE TIME DAILY meclizine 25 mg tablet 25 mg PO TID PRN Patient Comments: TAKE ONE TABLET BY MOUTH THREE TIMES DAILY NEEDED FOR vertigo. isosorbide mononitrate 30 mg tablet extended release 24 hr 30 mg PO DAILY Patient Comments: TAKE ONE TABLET BY MOUTH ONE TIME DAILY tamsulosin 0.4 mg capsule 0.4 mg PO DAILY famotidine 20 mg tablet 20 mg PO Q8H Patient Comments: TAKE ONE TABLET BY MOUTH TWICE DAILY rosuvastatin 40 mg tablet 40 mg PO HS Patient Comments: TAKE ONE TABLET BY MOUTH ONE TIME DAILY AT BEDTIME albuterol sulfate 90 mcg/actuation HFA aerosol inhaler 1 - 2 puff inhalation Q4H PRN trazodone 100 mg tablet 100 mg PO HS PRN Patient Comments: TAKE ONE TABLET BY MOUTH ONE TIME DAILY AT BEDTIME NEEDED FOR SLEEP fluticasone propionate 50 mcg/actuation spray,suspension 1 spray intranasal Q12H Patient Comments: INSTILL ONE SPRAY INTO EACH NOSTRIL TWICE DAILY gabapentin 600 mg tablet 600 mg PO Q12H Patient Comments: TAKE ONE TABLET BY MOUTH TWICE DAILY Follow Up/Referrals: Christine Booker MD [Primary Care Provider] - Stand Alone Forms: [employer] Info Instructions
--- OUTSIDE RECORDS SUMMARY | 2024-12-10 16:48 | XMS_ITS | Clinical Summary ---
Author Organization [facility] Address [address] , [address] [place] [address] Phone Care Team Providers Care Patient Clerical Assistant Name Role Phone [facility] Davidzahraa Unavailable Unava ilable Conditions or Problems Problem Name Problem Code Onset Date Status Entry Date Provider Comment Standard Description Annotate Orthostatic dizziness 172232978 (SNOMED CT) Active Nathan Rojas MD Postural dizziness Aphasia 31295933 (SNOMED CT) Active Nathan Rojas MD Aphasia CARPAL TUNNEL SYNDROME 51143376 (SNOMED CT) Active Viktor Blakely MD Carpal tunnel syndrome NUMBNESS/TING LING 782.0 (ICD-9-CM) Active Viktor Blakely MD Disturbance of skin sensation Medications Medication Instructions Start Date Stop Date Generic Name [facility] Provider LEVOCETIRIZINE DIHYDROCHLORIDE 5 MG TABS TAKE ONE TABLET BY MOUTH ONE TIME DAILY in the evening. levocetirizine [id number] Nathan Rojas MD ROSUVASTATIN CALCIUM 40 MG TABS TAKE ONE TABLET BY MOUTH ONE TIME DAILY AT BEDTIME rosuvastatin [id number] Nathan Rojas MD TRAZODONE HCL 100 MG TABS TAKE ONE TABLET BY MOUTH ONE TIME DAILY AT BEDTIME NEEDED FOR SLEEP trazodone [id number] Nathan Rojas MD ISOSORBIDE MONONITRATE ER 30 MG [id number] isosorbide mononitrate [id number] Nathan Rojas MD HYDROCHLOROTHIAZIDE 25 MG TABS hydrochlorothiazide [id number] Bettina Rojas MD TAMSULOSIN HCL 0.4 MG CAPS tamsulosin [id number] Nathan Rojas MD FLUTICASONE PROPIONATE 50 MCG/ACT SUSP INSTILL ONE SPRAY INTO EACH NOSTRIL TWICE DAILY fluticasone propionate [id number] Nathan Rojas MD LOSARTAN POTASSIUM 100 MG TABS TAKE ONE TABLET BY MOUTH ONE TIME DAILY losartan [id number] Nathan Rojas MD FAMOTIDINE 20 MG TABS famotidine [id number] Nathan Rojas MD GABAPENTIN 600 MG TABS gabapentin [id number] Nathan Rojas MD Medications Administered No information available. Allergies, Adverse Reactions, Alerts Observed no known allergies at Results Date Name Value Unit Range Flag Description Internal Other: Authorizatio n PTSTAUTHDT DONE PT Adam g Authorization Date Internal Other: Observation data from Authorization.pdf HIECONSENT Y Consent To Release information to the [employer] ([employer]) Lab Report: 02/25/21 - 2 ABSOLUTE MON [...] EEG Ambulatory (48hr) 01/29 ORDERS EEG 3hr CPT-17459 EEG Setup CPT-13349 Video EEG 2-12hrs () 01/29 CPT-01249 Video EEG 2-12hrs (Yanna) 202 12/04/00 ORDERS We will contact you with test results 202 12/03/24 [facility]-[id number] Documentation of current medicatio ns CPT-78560 Motor NCS x 2 CPT-24468 Sensory NCS x 2 CPT-15833 Motor NCS x 2 CPT-26735 Sensory NCS x 3 CPT-40644 EMG with NCS (5+ muscles) - 1 [...]
--- OUTSIDE RECORDS SUMMARY | 2024-12-10 16:48 | XMS_ITS | Clinical Summary ---
Author Organization [facility] Address [place], [place] [address] Care Team Providers Care Dermatology Nurse Name Role Phone Segun Vazquez MD Unavailable [phone] Oneil Marcos MD Unavailable [phone] Riley Guthrie DO Unavailable [phone] Christine Booker MD Primary Care Provider [phone] Allergies No known active allergies Medications multivitamin [...] nasal solution (FLONASE)Indicati ons:Environmental allergies Inhale 1 Gilliam in both nostrils once daily. 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 11/24/2023 Coronary atherosclerosis due to lipid [...] Department Care Team Description 12/10/2024 Nurse Triage [facility] [address] [place] [address] Christine Booker MD Dizziness (Since last Tuesday) 12/06/2024 1:00 PM BID CLERK Office Visit [facility] [address] [facility] [address] [place] [phone] Antionette Cespedes PA CV Valve Est (EVOLUT EXPAND II REDO BASELINE VST/MHIF RESEARCH/MIDDLEWARE ADMINISTRATOR-KIM [id number]/ECHO @ 9:30AM/RA TO DO 6MW / APPT CONFIRMED BY EDDIE 12/05//PCP: Christine Booker MD/) 12/06/2024 9:29 AM BID CLERK - 12/06/2024 11:59 PM BID CLERK Hospital Encounter [facility] [address] [place] [address] Roland Torres MD Lee, Hannah, R.T. (ARRT) Moderate aortic stenosis 12/06/2024 Lab Requisition [facility] [phone] Unknown, Doctor 12/06/2024 Travel 12/05/2024 Telephone [facility] [address] [facility] [address] [place] [phone] Kim Osorio RN Research 12/01/2024 Travel 11/30/2024 Orders Only [facility] Scanner 1 scan: (1-Ord) [facility], 11/30/2024 11/27/2024 Telephone [facility] [address] [place] [address] Christine Booker MD Follow Up 11/23/2024 Telephone [facility] [address] [place] [address] Christine Booker MD Refill Request (Imdur, metformin, rosuvastatin, Jardiance (alternative requested)) 11/23/2024 Refill [facility] [address] [place] [address] Christine Booker MD Refill Request (Metformin, Rosuvastatin, Isosorbide Mononitrate. Jardiance - requests alternative) 11/22/2024 Telephone [facility] [address] [place] [address] Christine Booker MD Refill Request (4 meds Metformin, Imdur, Jardiance and Crestor ) 11/19/2024 Refill [facility] [address] [place] [address] Christine Booker MD Refill Request (gabapentin (NEURONTIN) 600 mg tablet /traZODone (DESYREL) 100 mg tablet /fluticasone (50 mcg per actuation) nasal solution (FLONASE) /) 11/09/2024 7:45 AM BID CLERK Office Visit [facility] [address] [place] [phone] Roberto Carter MD 11/09/2024 Orders Only [facility] Scanner 1 scan: (1-Ord) [facility] 11/09/2024 Orders Only [facility] Scanner 1 scan: (1-Ord) [facility] 11/05/2024 Telephone [facility] [address] [facility] [address] [place] [phone] Kim Osorio, CHRISTIANO CV Research RN 11/05/2024 Orders Only [facility] [address] [place] [address] [place] [phone] Roland Torres MD CV Research 10/29/2024 Refill [facility] [address] [place] [address] Christine Booker MD Refill Request (Fluticasone (50 Mcg Per Actuation) Nasal) 10/18/2024 12:00 PM BID CLERK Office Visit [facility] [address] [facility] [address] [place] [phone] Candelario Gordon MD 10/18/2024 11:30 AM BID CLERK Office Visit [facility] [address] [facility] [address] [place] [phone] Florin [place] NP CV Valve Est (EVOLUT EXPAND II BASELINE/[facility] RESEARCH/MIDDLEWARE ADMINISTRATOR KIM [id number]/ECHO@ 9:30AM/(6MW)//PCP: Christine Booker MD/) 10/18/2024 9:28 AM BID CLERK - 10/18/2024 11:59 PM BID CLERK Hospital Encounter [facility] [address] [place] [address] Roland Torres MD Juras, Rachel E Moderate aortic stenosis 10/18/2024 Lab Requisition [facility] [phone] Unknown, Doctor 10/18/2024 Telephone [facility] [address] [facility] [address] [place] [phone] Kim Osorio, CHRISTIANO Research 10/17/2024 Travel 10/17/2024 Telephone [facility] [address] [facility] [address] [place] [phone] Cardiology, Anw Late Cancel Appointment 10/16/2024 2:30 PM BID CLERK Office Visit [facility] [address] [place] [address] Anderson Mckeon MD Sleep Consult 10/16/2024 Travel 10/16/2024 Telephone [facility] [address] [place] [address] Christine Booker MD Follow Up 10/12/2024 Telephone [facility] [address] [place] [address] Christine Booker MD Results 10/11/2024 9:10 AM BID CLERK Office Visit [facility] [address] [place] [address] Christine Booker MD Pre-Op Exam (Colonoscopy, [place], 11/09/2024, [facility]); Diabetes 10/11/2024 Travel 10/10/2024 Travel 10/03/2024 Telephone [facility] [address] [place] [address] Christine Booker MD 10/01/2024 Telephone [facility] [address] [place] [phone] Kim Osorio, RN 09/25/2024 Telephone [facility] [address] [place] [address] Christine Booker MD Questions (Return Call) 09/18/2024 Telephone [facility] [address] [place] [place] [phone] Kim Osorio, RN Research 09/17/2024 Orders Only [facility] [address] [address] [place] [phone] Roland Torres MD <No scans attached> 09/13/2024 Telephone [facility] [address] [place] [address] Roberto Carter MD [facility] 09/12/2024 Orders Only [facility] [address] [place] [address] Roberto Carter MD <No scans attached> 09/10/2024 Telephone [facility] [address] [place] [address] [place] [phone] Kim Osorio, RN Research 09/10/2024 Telephone [facility] [address] [place] [phone] Ruben Gambino MD Research Study Information from Last 3 Months Immunizations Name Administration Dates Next Due COVID-19 vaccine ([employer] 30mcg/0.3mL) 12YO+ BIVALENT PF, MDV 08/19/2022 COVID-19 vaccine ([employer] 30mcg/0.3mL) PF, MDV 03/23/2022,07/29/2021,01/03/2021,11/27 Influenza RIV4 [...] Sex Assigned at Male 12/05/2021 12:59 PM BID CLERK Legal Sex Male 6:20 AM BID CLERK Gender Identity Male 12/05/2021 12:59 PM BID CLERK Sexual Orientation Straight 07/07/2020 10 :25 AM CDT Obstetrics History Last Filed Vital Signs Vital Sign Reading Time Taken Comments Blood Pressure 137/65 12/06/2024 12:55 PM BID CLERK Pulse 68 12/06/2024 12:55 PM BID CLERK Temperature 36.4 C (97.6 F) 10/11/2024 9:24 AM BID CLERK Respiratory Rate 12 05/24/2023 10:28 AM CDT Oxygen Saturation 92% 12/06/2024 12:55 PM BID CLERK Inhaled Oxygen Concentration - - Weight 115.7 kg (255 lb) 12/06/2024 12:55 PM BID CLERK Height 177.8 cm (5' 10) 12/06/2024 12:55 PM BID CLERK Body Mass Index 36.59 12/06/2024 12:55 PM BID CLERK Plan of Treatment Upcoming Encounters Date Type Department Care Team (Late st Contact Info) Description 01/10/2025 9:10 AM CDT Office Visit [facility] [address] [place] [address] Christine Booker MD [address] [place] [address] Health Maintenance Due Date Last Done Comments [...] WITH AUTO DIFFERENTIAL Routine 12/06/2024 11:20 AM BID CLERK CREATININE Routine 12/06/2024 11:20 AM BID CLERK PRO-BNP Routine 12/06/2024 11:20 AM BID CLERK CBC WITH AUTO DIFFERENTIAL Routine 12/06/2024 11:20 AM BID CLERK ECHO TTE COMPLETE WO CONTRAST Routine 12/06/2024 10:28 AM BID CLERK Moderate aortic stenosis SCAN-EYE EXAM 11/30/2024 12:00 AM BID CLERK COLONOSCOPY SCREENING Routine 11/09/2024 8:04 AM BID CLERK Diverticulosis of large intestine without hemorrhage SCAN-COLONOSCOPY 11/09/2024 12:0 0 AM BID CLERK SCAN-COLONOSCOPY 11/09/2024 12:0 0 AM BID CLERK ECHO TTE COMPLETE WO CONTRAST Routine 10/18/2024 11:13 AM BID CLERK Moderate aortic stenosis CBC WITH AUTO DIFFERENTIAL Routine 10/18/2024 8:56 AM BID CLERK CREATININE Routine 10/18/2024 8:56 AM BID CLERK PRO-BNP Routine 10/18/2024 8:56 AM BID CLERK CBC WITH AUTO DIFFERENTIAL Routine 10/18/2024 8:56 AM BID CLERK HEMOGLOBIN Routine 10/11/2024 9:07 AM BID CLERK Preoperative cardiovascular examination BASIC METABOLIC PANEL Routine 10/11/2024 9:07 AM BID CLERK Stage 3 chronic kidney disease, unspecified whether stage 3a or 3b CKD (HC) LIPID PANEL W REFLEX MEASURED LDL Routine 10/11/2024 9:07 AM BID CLERK Hyperlipidemia, unspecified hyperlipidemia type HEMOGLOBIN A1C MONITORING (POCT) Routine 10/11/2024 9:06 AM BID CLERK Type 2 diabetes mellitus without complication, with long-term current use of insulin (HC) CT ABDOMEN PELVIS W STAT 04/21/2021 1 1:35 AM CDT Abdominal pain, LLQ (left lower quadrant) ANTI HCV Routine 07/29/2014 3:15 PM CDT Need for hepatitis C screening test from Last 3 Months or Most Recently Relevant to Health Maintenance Results * CBC WITH AUTO DIFFERENTIAL (12/06/2024 11:20 AM [facility]) Only the most recent of2 resultswithin the time period is included. WHITE BLOOD COUNT 5.8 4.5 - 11.0 thou/cu mm 12/06/2024 12:13 PM [facility] RED BLOOD COUNT 5.00 4.30 - 5.90 mil/cu mm 12/06/2024 12:13 PM [facility] HEMOGLOBIN 15.3 13.5 - 17.5 g/dL 12/06/2024 12:13 PM [facility] HEMATOCRIT 45.3 37.0 - 53.0 % 12/06/2024 12:13 PM [facility] MCV 91 80 - 100 fL 12/06/2024 12:13 PM [facility] MCH 30.6 26.0 - 34.0 pg 12/06/2024 12:13 PM [facility] MCHC 33.8 32.0 - 36.0 g/dL 12/06/2024 12:13 PM [facility] RDW 13.9 11.5 - 15.5 % 12/06/2024 12:13 PM [facility] PLATELET COUNT 158 140 - 440 thou/cu mm 12/06/2024 12:13 PM [facility] MPV 10.2 6.5 - 11.0 fL 12/06/2024 12:13 PM [facility] NRBC 0.0 % 12/06/2024 12:13 PM [facility] ABS NRBC 0.0 thou /cu mm 12/06/2024 12:13 PM [facility] % NEUT 67.5 % 12/06/2024 12:13 PM [facility] % LYMPH 19.4 % 12/06/2024 12:13 PM [facility] % MONO 7.7 % 12/06/2024 12:13 PM [facility] % EOS 4.6 % 12/06/2024 12:13 PM [facility] % BASO 0.5 % 12/06/2024 12:13 PM [facility] % IMMATURE GRAN (METAS,MYELOS,ID OS) 0.3 % 12/06/2024 12:13 PM BID CLERK [facility] ABSOLUTE NEUTROPHILS 3.9 1.7 - 7.0 thou/cu mm 12/06/2024 12:13 PM BID CLERK [facility] ABSOLUTE LYMPHOCYTES 1.1 0.9 - 2.9 thou/cu mm 12/06/2024 12:13 PM [facility] ABSOLUTE MONOCYTES 0.5 <0.9 thou/cu mm 12/06/2024 12:13 PM [facility] ABSOLUTE EOSINOPHILS 0.3 <0.5 thou/cu mm 12/06/2024 12:13 PM [facility] ABSOLUTE BASOPHILS 0.0 <0.3 thou/cu mm 12/06/2024 12:13 PM [facility] ABSOLUTE IMMATURE GRANULOCYTES(MET ,MYELOS,PROS) 0.0 <0.3 thou/cu mm 12/06/2024 12:13 PM [facility] Blood BLOOD SPECIMEN / Unknown Client Collect / Unknown 12/06/2024 11:20 AM BID CLERK 12/06/2024 12:07 PM [facility] us Doctor Unknown HEMATOLOGY Final Result [facility] [address] [place] [address], * (ABNORMAL) CREATININE (12/06/2024 11:20 AM [facility]) Only the most recent of2 resultswithin the time period is included. eGFR 59(L) >90 mL/min/1.7 3m2 12/06/2024 12:40 PM [facility] Comment:As of 2022, eG FR is calculated by the CKD-EPI creatinine equation without race adjustment. eGFR can be influenced by muscle mass, exercise, and diet. The reported eGFR is an estimation only and is only applicable if the renal function is stable. CREATININE 1.27(H) 0.70 - 1.20 mg/dL 12/06/2024 12:40 PM [facility] [employer] [employer] [facility] Blood BLOOD SPECIMEN / Unknown Client Collect / Unknown 12/06/2024 11:20 AM BID CLERK 12/06/2024 12:07 PM BID CLERK us Doctor Unknown CHEMISTRY Final Result [facility] [address] [place] [address], * PRO-BNP (12/06/2024 11:20 AM BID CLERK) Only the most recent of2 resultswithin the time period is included. PRO-BNP <=36 <125 pg/mL 12/06/2024 12:40 PM BID CLERK [facility] [employer] [employer] [facility] Blood BLOOD SPECIMEN / Unknown Client Collect / Unknown 12/06/2024 11:20 AM BID CLERK 12/06/2024 12:07 PM BID CLERK Narrative [facility] - 12/06/2024 12:40 PM BID CLERK The following cut-points have been suggested for [...] us Doctor Unknown SEND OUTS Final Result [facility] [address] [place] [address], [place] * ECHO TTE COMPLETE WO CONTRAST (12/06/2024 10:28 AM BID CLERK) Only the most recent of2 resultswithin the time period is included. AORTIC VALVE MEAN PG 22 mmHg EJECTION FRACTION 60 % LVEDD 4.4 cm EJECTION FRACTION 55 - 60% Anatomical Region Laterality Modality Ultrasound 12/06/2024 9:31 AM BID CLERK Narrative 12/06/2024 4:34 PM BID CLERK ECHOCARDIOGRAM ARIANNE CELIS : 1950 74 years Study Date: 12/06/2024 9:31:41 AM Gender: M BP: 137/63 mmHg Height: 178.00 cm BSA: 2.30 m Weight: 114.00 kg Tech: HRL Referring MD: ROLAND TORRES Site: [facility] Reading Location: ANW OP Patient Location: Outpatient. [...] . This study was interpreted by an [facility] accredited facility. Final Procedure Note Jose Rowland MD - 12/06/2024 ECHOCARDIOGRAM ARIANNE CELIS : 1950 74 years Study Date: 12/06/2024 9:31:41 AM Gender: M BP: 137/63 mmHg Height: 178.00 cm BSA: 2.30 m Weight: 114.00 kg Tech: HRL Referring MD: ROLAND TORRES Site: [facility] Reading Location: ANW OP Patient Location: Outpatient. [...] . This study was interpreted by an [facility] accredited facility. Final us Roland Torres MD ECHO ORD Final Result * SCAN-EYE EXAM (11/30/2024 12:00 AM BID CLERK) us Scanner OTHER Final Result * SCAN-COLONOSCOPY (11/09/2024 12:00 AM BID CLERK) us Scanner OTHER Final Result * SCAN-COLONOSCOPY (11/09/2024 12:00 AM BID CLERK) us Scanner OTHER Final Result * (ABNORMAL) LIPID PANEL W REFLEX MEASURED LDL (10/11/2024 9:07 AM BID CLERK) CHOLESTEROL, TOTAL 143 <200 mg/dL [facility] LDL-C. Roberto COLE et al. MORENITA. 2013;310(19): 1840-2099 (http://education.[employer]/faq/JWT110) CHOL/HDLC RATIO 3.3 <5.0 (calc) [facility] NON HDL CHOLESTEROL 99 <130 mg/dL (calc) [facility] Comment: For patients with diabetes plus 1 major ASCVD risk factor, treating to a non-HDL-C goal of <100 mg/dL (LDL-C of <70 mg/dL) is considered a therapeutic option. Blood BLOOD SPECIMEN / Unknown 10/11/2024 9:07 AM BID CLERK 10/11/2024 9:07 AM BID CLERK Christine Booker MD CHEMISTRY Final Resul t Performing Organization Address City/[facility]/ZIP Co de Phone Number [employer] [facility] [address] [place] [address], [place] [phone] [facility] [address] [place] [address] * HEMOGLOBIN (10/11/2024 9:07 AM BID CLERK) [facility] Signature HEMOGLOBIN 15.6 13.2 - 17.1 g/dL [facility] Blood BLOOD SPECIMEN / Unknown 10/11/2024 9:07 AM BID CLERK 10/11/2024 9:07 AM BID CLERK Christine Booker MD HEMATOLOGY Final Resul t [employer] [facility] [address] [place] [address], [place] [phone] [facility] [address] [place] [address] * (ABNORMAL) BASIC METABOLIC PANEL (10/11/2024 9:07 AM BID CLERK) GLUCOSE 156(H) 65 - 99 mg/dL [facility] Comment: Fasting reference interval For [...] CHLORIDE 101 98 - 110 mmol/L [facility] CARBON DIOXIDE 24 20 - 32 mmol/L [facility] ELECTROLYTE BALANCE 12 7 - 17 mmol/L (calc) [facility] CALCIUM 9.2 8.6 - 10.3 mg/dL [facility] Blood BLOOD SPECIMEN / Unknown 10/11/2024 9:07 AM BID CLERK 10/11/2024 9:07 AM BID CLERK us Christine Booker MD CHEMISTRY Final Resul t [employer] [facility] [address] [place] [address], [facility] [address] [place] [address] * (ABNORMAL) POCT Hemoglobin A1C Monitoring (10/11/2024 9:06 AM BID CLERK) Pathologist [facility] POC HEMOGLOBIN A1C 7.1(H) <6.0 % OF TOTAL HGB [facility] Comment: Any point of care results exhibiting inconsistency with the patient's clinical status should be repeated using a different testing method. Blood BLOOD SPECIMEN / Unknown 10/11/2024 9:06 AM BID CLERK 10/11/2024 9:06 AM BID CLERK us Christine Booker MD CHEMISTRY Final Resul t [facility] [address] [place] [address], [facility] [address] [place] [address] * CT ABDOMEN PELVIS W (04/21/2021 11:35 [...] MARES CT Final Result * ANTI HCV [[id number]] (07/29/2014 3:15 PM CDT) HEPATITIS C ANTIBODY Non-Reacti ve Non-Reacti ve 07/30/2014 5:25 PM CDT [facility] LAB[facility]ORY Blood specimen (specimen) BLOOD SPECIMEN / Unknown Venipuncture / Unknown 07/29/2014 3:15 PM CDT 07/29/2014 3:15 PM CDT Narrative [facility] - 07/30/2014 5:25 PM CDT Antibodies to HCV not detected; does not exclude the possibility of exposure to HCV. Josi Kaplan MD SEND OUTS Final Result [facility] 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 Healthcare Directive 11/16/2022 023 Healthcare Directive 06/06/2019 10:45 AM * Full Code (Latest Code Status on File) Date Activated Date Inactivated Comments 08/09/2012 12:06 PM 08/09/2012 3:15 PM * Full Code Date Activated Date Inactivated Comments 08/09/2012 10:41 AM 08/09/2012 12:06 PM * Full Code Date Activated Date Inactivated Comments 06/21/2012 8:30 AM 06/21/2012 6:05 PM Care Teams Dermatology Nurse Relationship Specialty Start Date End Date Christine Booker MD [address] [place] [address] PCP - General Family Practice 10/19/17 Segun Vazquez MD [address] [place] [address] Pain Management Sports Medicine 07/12/13 Oneil Marcos MD [address] [address] Ophthalmology Ophthalmology Surgery 02/09/15 Riley Guthrie DO [address] [place] [address] General Surgery Surgery of the Hand 02/09/13
--- NOTE | 2024-12-10 16:59 | CRLHL7_ITS ---
For Patients: As a result of the Century Cures Act, medical imaging exams and procedure reports are released immediately into your electronic medical record. You may view this report before your referring provider. If you have questions, please contact your health care provider. INDICATION: Chest pain, shortness of breath. TECHNIQUE: Chest 2 views. COMPARISON: None. FINDINGS: Cardiovascular and mediastinum: Heart size and vasculature are normal in caliber and appearance. Lungs and pleural spaces: Strandy opacity within the left lung base. The remainder of the lungs are clear. No pleural effusion or pneumothorax. Bones and soft tissues: Unremarkable for age. IMPRESSION: Strandy opacity within the left lung base likely represents atelectasis or scarring. No other evidence for an acute pulmonary process. Dictated by Raymond Monreal MD @ 12/10/2024 6:36:59 PM (Electronically Signed)
[2024-12-10 17:15] LABS: Basophils Absolute Auto 0.01 K/uL (0.00-0.30); Basophils Percent Auto 0.2 % (0.0-3.0); Eosinophils Absolute Auto 0.36 K/uL (0.00-0.50); Eosinophils Percent Auto 6.8 % (0.0-7.0); Hematocrit 45.6 % (37.0-53.0); Hemoglobin* 15.1 gm/dL (13.5-17.5); Immature Granulocytes Abs Auto 0.01 K/uL (0.00-0.30); Immature Granulocytes Pct Auto 0.2 %; Lymphocytes Absolute Auto 1.16 K/uL (0.90-2.90); Lymphocytes Percent Auto 21.9 % (20-44); Mean Corpuscular HGB Conc 33 gm/dL (32-36); Mean Corpuscular Hemoglobin 30 pg (26-34); Mean Corpuscular Volume 92 fL (80-100); Monocytes Percent Auto 8.1 % (0.0-11.0); Neutrophils Absolute Auto 3.32 K/uL (1.7-7.0); Neutrophils Percent Auto 62.8 % (42.0-72.0); Platelet Count* 149 K/uL (140-440); RDW Coefficient of Variation % 13.7 % (11.5-15.5); Red Blood Count 4.96 m/uL (4.30-5.90); White Blood Count* 5.29 K/uL (4.50-11.00)
[2024-12-10 17:18] LABS: Slide Review Reflex No
[2024-12-10 17:22] VITALS: BP 139/79; PULSE 63; RESP 18; TEMP 36.3; O2SAT 94
[2024-12-10 17:32] LABS: Chloride* 102 mmol/L (96-114); Sodium* 138 mmol/L (135-149)
[2024-12-10 17:34] LABS: Creatinine* 1.3 mg/dL (0.5-1.5); Est. Creatinine Clearance* 49.85; Estimated Glomerular Filt Rate 58 ml/min
[2024-12-10 17:35] LABS: Anion Gap 9 mEq/L (7-15); Blood Urea Nitrogen* 29 mg/dL (7-30); Calcium* 8.7 mg/dL (8.4-10.6); Carbon Dioxide* 27 mmol/L (20-32); Glucose* 117 mg/dL (60-115); Magnesium* 2.4 mg/dL (1.5-2.6)
[2024-12-10 17:37] LABS: D Dimer Quantitative* 0.43 ug/ml (0.00-0.50)
[2024-12-10 17:52] LABS: NT Pro B Type NatriureticPept* < 20 pg/mL
[2024-12-10 17:59] LABS: PCR FLU A Negative PCR FLU A (Negative); PCR FLU B Negative PCR FLU B (Negative); PCR RSV Negative PCR RSV (Negative); SARS PCR* Negative SARS-CoV-2 (Negative)
[2024-12-10 19:18] VITALS: BP 145/71; PULSE 59; RESP 18; TEMP 35.8; O2SAT 96
[2024-12-10 19:18] LABS: Bacteria Urine Few; RBC Urine 0-2 (0-2); Squamous Epithelial Cell Urine Few (None-Few); WBC Urine 0-2 (0-5)
[2024-12-10 19:37] LABS: Appearance Urine Clear (Clear); Color Urine Yellow (Yellow); Glucose Urine 2+ (Negative)
[2024-12-10 19:38] LABS: Bilirubin Urine Negative (Negative); Blood Urine Trace-lysed (Negative); Ketones Urine Negative (Negative); pH Urine 5.5 (5.0-8.5)
[2024-12-10 19:39] LABS: Leukocyte Esterase Urine Negative (Negative); Nitrite Urine Negative (Negative); Protein Urine Trace (Negative); Urobilinogen Urine 0.2 (0.2-1.0)
== END 2024-12-10 19:50 | disposition home or self-care (01) ==
PROVIDERS: Emergency Provider Family Medicine; PCP Family Medicine
DX: I95.1 Orthostatic hypotension (principal); I35.0 Nonrheumatic aortic (valve) stenosis; R06.02 Shortness of breath
CPT/HCPCS: 36415; 71046; 80048; 81001; 82947; 83735; 83880; 84484; 85025; 85379; 87086; 87631; 93005; 99284